=== PATIENT | male | born 1950 | race Caucasian/White ===

== ENCOUNTER 2019-11-09 12:25 | Inpatient (IN) | payer BC, MEDICARE, OTHER ==
[2019-11-09] MEDS ORDERED: Dexamethasone 10 MG/ML VIAL ONE (13:05)
--- NOTE | 2019-11-09 13:37 | RAD ---
RADIOGRAPH CHEST 1 VIEW: DATE: 11/09/2019 TIME: 1:06 PM HISTORY: 69 year old male with dyspnea COMPARISON: 10/10/2018 FINDINGS: New finding of multifocal mild, subtle, faint, patchy infiltrates in bilateral mid, upper, and lower lung zones, right greater than left, with peripheral predominance. No cardiomegaly, pulmonary edema, pneumothorax, or effacement of lateral costophrenic angles. IMPRESSION: Multifocal mild bilateral groundglass infiltrates suggestive of viral pneumonia. Recommend correlatio n with laboratory COVID-19 testing.
[2019-11-09 13:53] LABS: #Lymphocytes 0.9 thou/uL (1.20-3.40); #Monocytes 0.6 thou/uL (0.11-0.59); #Neutrophils 3.5 thou/uL (1.40-6.50); %Eosinophils 0.1 % (0.0-10.0); %Lymphocytes 17.6 % (21.0-51.0); %Monocytes 12.2 % (0.0-10.0); %Neutrophils 70.1 % (42.0-75.0); Hemoglobin 16.5 g/dL (14.0-18.0); Mean Corpuscular HGB CONC 33.5 g/dL (32.0-36.0); Mean Corpuscular Hemoglobin 30.8 pg (27.0-31.0); Mean Corpuscular Volume 92.1 fL (78.0-98.0); Mean Platelet Volume 8.3 fL (7.4-10.4); Platelet Count 148 thou/uL (130-400); RBC Distribution Width 12.1 % (11.5-14.5); Red Blood Cell (RBC) Count 5.34 mill/uL (4.70-6.10)
[2019-11-09 14:15] LABS: ALT (SGPT) 49 U/L (8-55); AST (SGOT) 34 U/L (5-34); Albumin 3.6 g/dL (3.4-4.8); Alkaline Phosphatase 96 U/L (40-110); Anion Gap 14 mmol/L (10-20); BUN (Urea Nitrogen) 19 mg/dL (8.4-25.7); Bilirubin, Total 0.5 mg/dL (0.2-1.2); CK (CPK) 162 U/L (30-200); Calc. Creatinine Clearance 0 mL/min (70-130); Calcium 8.3 mg/dL (7.8-10.44); Carbon Dioxide 23 mmol/L (23-31); Chloride 102 mmol/L (98-107); Estimated GFR-MDRD 51; Globulin 2.9 g/dL (2.4-3.5); Glucose 87 mg/dL (80-115); Lipase 29 U/L (8-78); Potassium 4.1 mmol/L (3.5-5.1); Protein, Total 6.5 g/dL (5.8-8.1); Sodium 135 mmol/L (136-145)
[2019-11-09] MEDS ORDERED: Enoxaparin Sodium 30 MG/0.3 ML SYRINGE ONE (14:32)
[2019-11-09] MEDS ORDERED: Azithromycin 500 MG VIAL ONE (14:32)
[2019-11-09] MEDS ORDERED: Enoxaparin Sodium 60 MG/0.6 ML SYRINGE ONE (14:32)
[2019-11-09] MEDS ORDERED: Aspirin Chewable 81 MG TAB ONE (14:32)
[2019-11-09] MEDS ORDERED: cefTRIAXone\\ROCEPHIN 1 GM VIAL ONE (14:32)
[2019-11-09] MEDS ORDERED: Ondansetron ODT 4 MG TAB SL PRN (16:42)
[2019-11-09] MEDS ORDERED: Ondansetron PF 4 MG/2 ML Vial IVP PRN (16:42)
[2019-11-09] MEDS ORDERED: Sodium Chloride 0.9% 1,000 ML IV SCH (16:42)
[2019-11-09 17:31] VITALS: BMI 27.1
[2019-11-09 17:53] LABS: Troponin I 0.011 ng/mL (< 0.028)
[2019-11-09] MEDS ORDERED: Acetaminophen 650 MG Suppository PR PRN (17:54)
--- NOTE | 2019-11-09 18:59 | HP ---
PRIMARY CARE PROVIDER: Dr. Smith. CHIEF COMPLAINT: Cough. HISTORY OF PRESENT ILLNESS: Cheyenne is a pleasant 69-year-old gentleman, who was seen at [facility] on November 09, 2019. He reports that around November 01, he started having progressively worsening shortness of breath. He also reports cough that is occasionally productive of sputum. He reports on and off fevers. He reports body aches. He reports generalized weakness. He had COVID-19 test done on November 04, 2019. He found out that it was positive on November 07, 2019. He continued to have progressively worsening shortness of breath as well as cough. He therefore presented to the emergency room. In the emergency room, he was diagnosed with pneumonia either bacterial or secondary to COVID-19 infection. He has been referred to Hospitalist Service for admission. REVIEW OF SYSTEMS: All systems were reviewed and found to be negative except for the pertinent positives mentioned above. PAST MEDICAL HISTORY: Coronary artery disease, gastroesophageal reflux disease, dyslipidemia, hypertension, and asthma. PAST SURGICAL HISTORY: PCI with stent, left shoulder surgery, right knee surgery, and neck surgery. SOCIAL HISTORY: The patient denies tobacco use, alcohol use, or recreational drug use. FAMILY HISTORY: Hypertension in his mother. ALLERGIES: BACTRIM, MEPERIDINE, AND NALBUPHINE. CURRENT MEDICATIONS: Breo Ellipta inhalation, irbesartan 300 mg daily, nifedipine 60 mg daily, Myrbetri 50 mg daily, ropinirole 0.25 mg daily, Pantoprazole 40 mg daily, and aspirin 81 mg daily. PHYSICAL EXAMINATION: GENERAL: On examination, Mr. Quinn is awake and alert, not in acute distress. VITAL SIGNS: Blood pressure is 152/79, pulse 81, respiratory rate 22, and oxygen saturation 96% on room air. He is afebrile. EYES: No scleral icterus, no conjunctival pallor. ENT: Moist mucosal membranes. No oropharyngeal erythema or exudates. NECK: Supple, nontender, trachea is midline. RESPIRATORY: Accessory muscles of breathing are not active. Chest wall movements are symmetric bilaterally. Lungs are clear to auscultation without wheeze, rhonchi, or crepitations. CARDIOVASCULAR: S1 and S2 are heard, regular. Peripheral pulses palpable. ABDOMEN: Soft, nontender, bowel sounds are heard. NEUROLOGIC: Cranial nerves 2 through 12 are intact. MUSCULOSKELETAL: Power is 5/5 in all 4 extremities. SKIN: No rashes or subcutaneous nodules. LYMPHATIC: No cervical lymphadenopathy. PSYCHIATRIC: Normal mood, normal affect, the patient is oriented to person, place, and time. LABORATORY DATA: Mr. Quinn's labs and investigations were reviewed. I reviewed his electrocardiogram, which shows normal sinus rhythm, no evidence of ST elevation myocardial infarction. I also reviewed his chest x-ray, which shows multifocal bilateral ground-glass infiltrates, most likely secondary to viral pneumonia. He had positive COVID-19 PCR test on November 04, 2019. He has normal white count, normal hemoglobin, normal platelet count, decreased absolute lymphocyte count of 900, D-dimer normal at 0.36, sodium decreased at 135, normal potassium, creatinine elevated at 1.38, it was 1.58 on October 03, 2019, normal LFTs and troponin-I that is less than 0.010. BNP is less than 10. Lipase is normal. ASSESSMENT AND PLAN: Mr. Quinn is a pleasant 69-year-old gentleman, who was seen at [facility] on November 09, 2019. His problem list includes: 1. Pneumonia: Mr. Quinn is presenting with pneumonia, most likely secondary to COVID-19 infection. In the emergency room, he has received dexamethasone, which I will continue. I will check his ferritin and C-reactive protein. He has also received empiric antibiotics to cover bacterial pneumonia in the form of ceftriaxone and azithromycin, which I will continue for now. We will consult ID service for opinion and help with management. 2. Hyponatremia: Mild, likely asymptomatic, we will recheck sodium level. 3. Coronary artery disease: Stable, the patient denies any chest pain at this time. 4. Hypertension: Resume home medications, monitor vital signs and titrate antihypertensives as needed. 5. Chronic kidney disease stage 3: Stable. 6. Asthma: Appears to be stable. 7. Gastroesophageal reflux disease, stable. Many thanks for allowing me to participate in your patient's care. Please feel free to contact me with any questions or concerns. LEVEL OF RISK: High. LEVEL OF COMPLEXITY: High. Job ID: [id number]
[2019-11-09] MEDS ORDERED: Enoxaparin Sodium 40 MG/0.4 ML SYRINGE SC SCH (21:00)
[2019-11-09] MEDS ORDERED: Dexamethasone 10 MG/ML VIAL SLOW IVP SCH (21:00)
[2019-11-09] MEDS: Acetaminophen 325 MG TAB PO PRN (22:11)
[2019-11-09 22:21] LABS: Troponin I 0.019 ng/mL (< 0.028)
[2019-11-10] MEDS ORDERED: Melatonin 3 MG TAB PO PRN (00:39)
[2019-11-10] MEDS ORDERED: rOPINIRole HCl 0.25 MG TAB PO SCH (01:00)
[2019-11-10] MEDS: Acetaminophen 325 MG TAB PO PRN ×4 (02:19→20:29)
[2019-11-10 05:23] LABS: Band 1 % (5-11); Hemoglobin 15.5 g/dL (14.0-18.0); Lymphocytes 39 % (21-51); MDiff Complete? YES; Mean Corpuscular HGB CONC 33.6 g/dL (32.0-36.0); Mean Corpuscular Hemoglobin 30.8 pg (27.0-31.0); Mean Corpuscular Volume 91.6 fL (78.0-98.0); Mean Platelet Volume 7.9 fL (7.4-10.4); Monocytes 10 % (0-10); Neutrophil 50 % (42-75); Platelet Count 146 thou/uL (130-400); Platelet Morphology Comment Appears Adequate; RBC Distribution Width 11.9 % (11.5-14.5); RBC Morphology Normal; Red Blood Cell (RBC) Count 5.05 mill/uL (4.70-6.10); White Blood Cell (WBC) Count 2.5 thou/uL (4.8-10.8)
[2019-11-10 05:25] LABS: Anion Gap 12 mmol/L (10-20); BUN (Urea Nitrogen) 19 mg/dL (8.4-25.7); Calc. Creatinine Clearance 70 mL/min (70-130); Calcium 8.7 mg/dL (7.8-10.44); Carbon Dioxide 24 mmol/L (23-31); Chloride 103 mmol/L (98-107); Estimated GFR-MDRD 54; Glucose 129 mg/dL (80-115); Sodium 135 mmol/L (136-145)
[2019-11-10] MEDS: Azelastine 137 MCG/Spray 30 ML NS SCH (09:15)
[2019-11-10] MEDS: Enoxaparin Sodium 40 MG/0.4 ML SYRINGE SC SCH ×2 (09:16→20:11)
[2019-11-10] MEDS: Dexamethasone 4 MG TAB PO SCH (09:16)
[2019-11-10] MEDS: NIFEdipine XL 60 MG TAB PO SCH (09:16)
[2019-11-10] MEDS: Losartan 25 MG TAB PO SCH (09:17)
[2019-11-10] MEDS: Aspirin 81 mg Enteric Coated Tablet PO SCH (09:17)
[2019-11-10] MEDS ORDERED: cefTRIAXone\\ROCEPHIN 1 GM in Sodium Chloride 0.9% 100 ML IVPB SCH (14:00)
[2019-11-10] MEDS ORDERED: Azithromycin 500 MG in Sodium Chloride 0.9% 250 ML 250 ML IVPB SCH (15:00)
--- NOTE | 2019-11-10 17:23 | PDOC.HOSPP ---
- Subjective Encounter Date: 11/10/19 Encounter Time: 07:40 Subjective: Pt seen for followup re: pneumonia. Feels better. Cough+, clear sputum. Fevers +. - Objective Vital Signs & Weight: Vital Signs (12 hours) Temp Pulse Resp BP Pulse Ox 11/10/19 11:30 97.7 F 71 20 129/69 95 11/10/19 09:16 97.9 F 55 L 16 143/70 H 97 Weight Weight 200 lb I&O: 11/09/19 11/10/19 11/11/19 06:59 06:59 06:59 Intake Total 840 Output Total 2049 Balance -1210 Result Diagrams: 11/10/19 04:56 11/10/19 04:56 Additional Labs: Labs and MARs reviewed by me EKG Reviewed by me: Yes (Tele: NSR) Hospitalist ROS - Review of Systems Respiratory: reports: cough, SOB with excertion, sputum Cardiovascular: denies: chest pain, palpitations, orthopnea, paroxysmal noc. dyspnea, edema, light headedness Gastrointestinal: denies: nausea, vomiting, abdominal pain, diarrhea, constipation, melena, hematochezia - Medication Medications: Active Medications Generic Name Dose Route Start Last Admin Trade Name Freq PRN Reason Stop Dose Admin Acetaminophen 650 mg 11/09/19 17:54 11/10/19 12:51 Tylenol PO 650 mg Q4H PRN Administration Headache/Fever/Mild Pain (1-3) Aspirin 81 mg 11/10/19 09:00 11/10/19 09:17 Ecotrin PO 81 mg QAM NGUYEN Administration Azelastine HCl 0 ml 11/10/19 09:00 11/10/19 09:15 Azelastine NS 1 spr DAILY NGUYEN Administration Dexamethasone 6 mg 11/10/19 08:00 11/10/19 09:16 Decadron PO 6 mg QAM-WM NGUYEN Administration Enoxaparin Sodium 40 mg 11/10/19 09:00 11/10/19 09:16 Lovenox SC 40 mg 0900,2100 NGUYEN Administration Losartan Potassium 100 mg 11/10/19 09:00 11/10/19 09:17 Cozaar PO Not Given DAILY NGUYEN Mirabegron 50 mg 11/10/19 09:00 11/10/19 09:16 Myrbetriq Er PO 50 mg DAILY NGUYEN Administration Nifedipine 60 mg 11/10/19 09:00 11/10/19 09:16 Procardia Xl PO Not Given DAILY NGUYEN Pantoprazole Sodium 40 mg 11/10/19 09:00 11/10/19 09:16 Protonix PO 40 mg DAILY NGUYEN Administration - Exam General Appearance: awake alert Eye: anicteric sclera ENT: moist mucosa Neck: supple, no JVD Heart: RRR, no rubs, normal peripheral pulses Respiratory: normal chest expansion Respiratory - other findings: Bibasal crackles Gastrointestinal: soft, non-tender Extremities: no cyanosis Skin: no rashes Musculoskeletal: no muscle wasting Psychiatric: normal affect, normal behavior Hosp A/P (1) Pneumonia Code(s): J18.9 - PNEUMONIA, UNSPECIFIED ORGANISM Status: Acute (2) GERD (gastroesophageal reflux disease) Code(s): K21.9 - GASTRO-ESOPHAGEAL REFLUX DISEASE WITHOUT ESOPHAGITIS Status: Chronic (3) Dyslipidemia Code(s): E78.5 - HYPERLIPIDEMIA, UNSPECIFIED Status: Chronic (4) HTN (hypertension) Code(s): I10 - ESSENTIAL (PRIMARY) HYPERTENSION Status: Chronic (5) CAD (coronary artery disease) Code(s): I25.10 - ATHSCL HEART DISEASE OF [place] CORONARY ARTERY W/O ANG PCTRS Status: Chronic (6) Chronic kidney disease, stage 3 Code(s): N18.3 - CHRONIC KIDNEY DISEASE, STAGE 3 (MODERATE) Status: Chronic - Plan continue antibiotics, out of bed/ambulate Continue IV ceftriaxone and azithromycin. Continue dexamethasone. Pt is clinically improving. Vit C/D/zinc HTN controlled CKD stable CAD stable
[2019-11-10] MEDS ORDERED: Cholecalciferol 1,000 UNITS (25 MCG) TAB PO SCH (17:30)
[2019-11-10] MEDS ORDERED: Ascorbic Acid 500 mg Chewable Tablet PO SCH (17:30)
[2019-11-10] MEDS ORDERED: Zinc Sulfate 220 MG CAP PO SCH (17:30)
[2019-11-10] MEDS: Mometasone 100 MCG/Formoterol 5 MCG 120 PUFF INHALER INH SCH (17:37)
--- NOTE | 2019-11-10 20:09 | CON ---
DATE OF CONSULTATION: 11/10/2019 REASON FOR CONSULTATION: COVID pneumonia. HISTORY OF PRESENT ILLNESS: A 69-year-old history of coronary artery disease, GERD, hypertension, and asthma, who became ill on November 01, tested positive few days later and because of worsening cough and dyspnea, was admitted. Currently feeling better, still with some cough intermittently. No headaches. No dyspnea. Not requiring oxygen supplementation. No chest pain or abdominal pain. No diarrhea. No genitourinary symptoms. No joint symptoms. PAST MEDICAL HISTORY: Coronary artery disease, GERD, hyperlipidemia, hypertension, and asthma. He has had cardiac stents, shoulder and knee surgery, and neck surgery. SOCIAL HISTORY: Never smoker. He is , lives with family in [place]. FAMILY HISTORY: Both and daughter have COVID. seems to be pretty sick, but has refused to go to the hospital because she needs to care for the 15-year-old daughter. ALLERGIES: BACTRIM AND MEPERIDINE. CURRENT MEDICATIONS: 1. DuoNeb. 2. Ecotrin. 3. Azelastine. 4. Azithromycin. 5. Ceftriaxone. 6. Decadron. 7. Lovenox. 8. Melatonin. 9. Myrbetriq. 10. Inhalers. 11. Ropinirole. PHYSICAL EXAMINATION: VITAL SIGNS: Normal temperature. Breathing anywhere from started at 24 breaths per minute, now is down to 20. He is saturating started at 95, now he is still 95, he is on room air at the moment. GENERAL: There is no distress. Able to speak in full sentences. SKIN: Normal. There is no lymphadenopathy. HEENT: Unremarkable. LUNGS: With a few inspiratory crackles mostly at the bases. No wheezing. HEART: S1 and S2. Regular rate. No S3 or S4. ABDOMEN: Soft, not distended or tender. No ascites. No bladder distention. EXTREMITIES: No joint inflammatory activity. Moves extremities equally. No edema. NEURO: Nonfocal including cognitive function. LABORATORY DATA: The electrolytes started sodium 135, creatinine 1.38 and creatinine now is down to 1.32. Liver profile normal. CRP 5.61, albumin 3.6. D-dimer 0.36. White cell count is 5.0 and now 2.5, hemoglobin 15, platelets 146, and lymphocyte count 0.9. CRP was 5.61. Ferritin was 393. Chest x-ray with bilateral diffuse infiltrates, the infiltrates are not very prominent. ASSESSMENT AND PLAN: Coronary artery disease, hyperlipidemia, asthma, and COVID pneumonia [id number]. The patient continues on Decadron. Decadron in mild cases seems not to provide the same amount of benefit, although he does have asthma and may help with that. So, I am going to continue Decadron. I do not think he needs antiviral therapy at the moment. Continue monitoring inflammatory markers, D-dimer, maybe can go homes in the next few days. Job ID: [id number]
[2019-11-10] MEDS: rOPINIRole HCl 0.25 MG TAB PO SCH (20:11)
[2019-11-10] MEDS: Melatonin 3 MG TAB PO PRN (20:29)
[2019-11-11] MEDS: rOPINIRole HCl 0.25 MG TAB PO SCH ×3 (01:30→21:13)
[2019-11-11] MEDS: Acetaminophen 325 MG TAB PO PRN ×2 (04:06→08:14)
[2019-11-11 05:20] LABS: #Monocytes 0.6 thou/uL (0.11-0.59); #Neutrophils 4.4 thou/uL (1.40-6.50); %Basophils 0.3 % (0.0-1.0); %Eosinophils 0.2 % (0.0-10.0); %Lymphocytes 16.1 % (21.0-51.0); %Monocytes 10.6 % (0.0-10.0); %Neutrophils 72.8 % (42.0-75.0); Hemoglobin 15.2 g/dL (14.0-18.0); Mean Corpuscular HGB CONC 32.1 g/dL (32.0-36.0); Mean Corpuscular Hemoglobin 29.7 pg (27.0-31.0); Mean Corpuscular Volume 92.6 fL (78.0-98.0); Mean Platelet Volume 8.4 fL (7.4-10.4); Platelet Count 189 thou/uL (130-400)
[2019-11-11 05:22] LABS: Anion Gap 15 mmol/L (10-20); BUN (Urea Nitrogen) 21 mg/dL (8.4-25.7); Calc. Creatinine Clearance 79 mL/min (70-130); Calcium 8.8 mg/dL (7.8-10.44); Carbon Dioxide 23 mmol/L (23-31); Chloride 103 mmol/L (98-107); Estimated GFR-MDRD 62; Glucose 111 mg/dL (80-115); Potassium 4.1 mmol/L (3.5-5.1); Sodium 137 mmol/L (136-145)
[2019-11-11] MEDS: Mometasone 100 MCG/Formoterol 5 MCG 120 PUFF INHALER INH SCH ×2 (06:49→18:09)
[2019-11-11] MEDS: Cholecalciferol 1,000 UNITS (25 MCG) TAB PO SCH (08:12)
[2019-11-11] MEDS: Aspirin 81 mg Enteric Coated Tablet PO SCH (08:12)
[2019-11-11] MEDS: Losartan 25 MG TAB PO SCH (08:12)
[2019-11-11] MEDS: Ascorbic Acid 500 mg Chewable Tablet PO SCH (08:13)
[2019-11-11] MEDS: Dexamethasone 4 MG TAB PO SCH (08:13)
[2019-11-11] MEDS: Azelastine 137 MCG/Spray 30 ML NS SCH (08:14)
[2019-11-11] MEDS: Zinc Sulfate 220 MG CAP PO SCH (08:14)
[2019-11-11] MEDS: Enoxaparin Sodium 40 MG/0.4 ML SYRINGE SC SCH ×2 (08:14→21:13)
[2019-11-11] MEDS: NIFEdipine XL 60 MG TAB PO SCH (08:14)
[2019-11-11] MEDS ORDERED: Ondansetron PF 4 MG/2 ML Vial IVP PRN (09:53)
[2019-11-11] MEDS ORDERED: Ondansetron PF 4 MG/2 ML Vial IVP SCH (10:00)
--- NOTE | 2019-11-11 18:18 | PDOC.HOSPP ---
- Subjective Encounter Date: 11/11/19 Encounter Time: 08:00 Subjective: Pt seen for followup for pneumonia. Cough+, sputum+. Feels slightly better. - Objective Vital Signs & Weight: Vital Signs (12 hours) Temp Pulse Resp BP Pulse Ox 11/11/19 16:10 97.6 F 68 20 130/71 93 L 11/11/19 12:15 98.0 F 74 18 128/63 94 L 11/11/19 08:10 97.8 F 84 18 137/65 94 L 11/11/19 08:05 94 L Weight Admit Weight 200 lb Weight 200 lb I&O: 11/10/19 11/11/19 11/12/19 06:59 06:59 06:59 Intake Total 840 2160 1210 Output Total 2050 225 Balance -1210 1935 1210 Result Diagrams: 11/11/19 04:42 11/11/19 04:42 Additional Labs: Labs and MARs reviewed by me EKG Reviewed by me: Yes (Tele; NSR) Hospitalist ROS - Review of Systems Respiratory: reports: cough, sputum Cardiovascular: denies: chest pain, palpitations, orthopnea, paroxysmal noc. dyspnea, edema, light headedness Genitourinary: denies: dysuria, frequency, incontinence, hematuria, retention - Medication Medications: Active Medications Generic Name Dose Route Start Last Admin Trade Name Freq PRN Reason Stop Dose Admin Acetaminophen 650 mg 11/09/19 17:54 11/11/19 08:14 Tylenol PO 650 mg Q4H PRN Administration Headache/Fever/Mild Pain (1-3) Ascorbic Acid 1,000 mg 11/11/19 09:00 11/11/19 08:13 Vitamin C PO 1,000 mg DAILY NGUYEN Administration Aspirin 81 mg 11/10/19 09:00 11/11/19 08:12 Ecotrin PO 81 mg QAM NGUYEN Administration Azelastine HCl 0 ml 11/10/19 09:00 11/11/19 08:14 Azelastine NS 1 spr DAILY NGUYEN Administration Cholecalciferol 1,000 units 11/11/19 09:00 11/11/19 08:12 Vitamin D3 PO 1,000 units DAILY NGUYEN Administration Dexamethasone 6 mg 11/10/19 08:00 11/11/19 08:13 Decadron PO 6 mg QAM-WM NGUYEN Administration Enoxaparin Sodium 40 mg 11/10/19 09:00 11/11/19 08:14 Lovenox SC 40 mg 0900,2100 NGUYEN Administration Losartan Potassium 100 mg 11/10/19 09:00 11/11/19 08:12 Cozaar PO 100 mg DAILY NGUYEN Administration Melatonin 3 mg 11/10/19 07:50 11/10/19 20:29 Melatonin PO 3 mg HS PRN Administration Insomnia Mirabegron 50 mg 11/10/19 09:00 11/11/19 08:12 Myrbetriq Er PO 50 mg DAILY NGUYEN Administration Mometasone Furoate/Formoterol Fumar 2 puff 11/10/19 18:30 11/11/19 18:09 Dulera 100 Mcg/5 Mcg Inhaler INH 2 puff BID-RT NGUYEN Administration Nifedipine 60 mg 11/10/19 09:00 11/11/19 08:14 Procardia Xl PO 60 mg DAILY NGUYEN Administration Pantoprazole Sodium 40 mg 11/10/19 09:00 11/11/19 08:12 Protonix PO 40 mg DAILY NGUYEN Administration Ropinirole HCl 0.25 mg 11/10/19 21:00 11/10/19 20:11 Requip PO 0.25 mg HS NGUYEN Administration Zinc Sulfate 220 mg 11/11/19 09:00 11/11/19 08:14 Zinc Sulfate PO 220 mg DAILY NGUYEN Administration - Exam General Appearance: awake alert Eye: scleral icterus ENT: moist mucosa Neck: supple Heart: RRR Respiratory: CTAB Gastrointestinal: soft, non-tender Extremities: no cyanosis Psychiatric: normal affect, normal behavior Hosp A/P (1) Pneumonia Code(s): J18.9 - PNEUMONIA, UNSPECIFIED ORGANISM Status: Acute (2) Dyslipidemia Code(s): E78.5 - HYPERLIPIDEMIA, UNSPECIFIED Status: Chronic (3) GERD (gastroesophageal reflux disease) Code(s): K21.9 - GASTRO-ESOPHAGEAL REFLUX DISEASE WITHOUT ESOPHAGITIS Status: Chronic (4) HTN (hypertension) Code(s): I10 - ESSENTIAL (PRIMARY) HYPERTENSION Status: Chronic (5) CAD (coronary artery disease) Code(s): I25.10 - ATHSCL HEART DISEASE OF [place] CORONARY ARTERY W/O ANG PCTRS Status: Chronic (6) Chronic kidney disease, stage 3 Code(s): N18.3 - CHRONIC KIDNEY DISEASE, STAGE 3 (MODERATE) Status: Chronic - Plan continue antibiotics, out of bed/ambulate Continue dexamethasone. Pt is clinically improving. ceftriaxone and azithromycin discontinued. Vit C/D/zinc HTN controlled CKD and CAD stable Hyponatremia resolved.
[2019-11-12] MEDS ORDERED: guaiFENesin ER 600 MG TAB PO SCH (05:00)
[2019-11-12] MEDS: Acetaminophen 325 MG TAB PO PRN ×2 (05:11→14:13)
[2019-11-12] MEDS: Mometasone 100 MCG/Formoterol 5 MCG 120 PUFF INHALER INH SCH ×2 (05:23→18:16)
[2019-11-12 05:34] LABS: #Monocytes 0.7 thou/uL (0.11-0.59); #Neutrophils 5.9 thou/uL (1.40-6.50); %Basophils 0.4 % (0.0-1.0); %Eosinophils 0.1 % (0.0-10.0); %Lymphocytes 12.9 % (21.0-51.0); %Monocytes 8.9 % (0.0-10.0); %Neutrophils 77.8 % (42.0-75.0); Hemoglobin 15.7 g/dL (14.0-18.0); Mean Corpuscular HGB CONC 33.8 g/dL (32.0-36.0); Mean Corpuscular Hemoglobin 31.1 pg (27.0-31.0); Mean Corpuscular Volume 92.2 fL (78.0-98.0); Platelet Count 186 thou/uL (130-400); Red Blood Cell (RBC) Count 5.06 mill/uL (4.70-6.10); White Blood Cell (WBC) Count 7.6 thou/uL (4.8-10.8)
[2019-11-12 05:54] LABS: Anion Gap 13 mmol/L (10-20); BUN (Urea Nitrogen) 21 mg/dL (8.4-25.7); Calc. Creatinine Clearance 62 mL/min (70-130); Calcium 8.6 mg/dL (7.8-10.44); Carbon Dioxide 30 mmol/L (23-31); Chloride 98 mmol/L (98-107); Estimated GFR-MDRD 47; Glucose 83 mg/dL (80-115); Potassium 4.3 mmol/L (3.5-5.1); Sodium 137 mmol/L (136-145)
[2019-11-12] MEDS: Enoxaparin Sodium 40 MG/0.4 ML SYRINGE SC SCH ×2 (07:55→20:08)
[2019-11-12] MEDS: Cholecalciferol 1,000 UNITS (25 MCG) TAB PO SCH (07:56)
[2019-11-12] MEDS: Aspirin 81 mg Enteric Coated Tablet PO SCH (07:56)
[2019-11-12] MEDS: Ascorbic Acid 500 mg Chewable Tablet PO SCH (07:56)
[2019-11-12] MEDS: Zinc Sulfate 220 MG CAP PO SCH (07:57)
[2019-11-12] MEDS: NIFEdipine XL 60 MG TAB PO SCH (07:57)
[2019-11-12] MEDS: guaiFENesin ER 600 MG TAB PO SCH ×2 (07:58→20:07)
[2019-11-12] MEDS: Losartan 25 MG TAB PO SCH (07:59)
[2019-11-12] MEDS: Dexamethasone 4 MG TAB PO SCH (07:59)
[2019-11-12] MEDS: Azelastine 137 MCG/Spray 30 ML NS SCH (08:18)
--- NOTE | 2019-11-12 16:04 | PDOC.HOSPP ---
- Subjective Encounter Date: 11/12/19 Encounter Time: 09:00 Subjective: Pt seen for followup for COVID pneumonia. Needing supplemental oxygen. - Objective Vital Signs & Weight: Vital Signs (12 hours) Temp Pulse Resp BP Pulse Ox 11/12/19 10:50 98.8 F 89 24 H 118/61 96 11/12/19 08:00 98.7 F 80 22 H 119/54 L 95 11/12/19 07:57 90 Weight Admit Weight 200 lb Weight 200 lb I&O: 11/11/19 11/12/19 11/13/19 06:59 06:59 06:59 Intake Total 2160 1830 Output Total 225 Balance 1935 1830 Result Diagrams: 11/12/19 05:12 11/12/19 05:11 Additional Labs: Labs and MARs reviewed by me EKG Reviewed by me: Yes (Tele: NSR) Hospitalist ROS - Review of Systems Constitutional: denies: fever, chills, sweats, weakness, malaise Respiratory: reports: cough, SOB with excertion, sputum. denies: dry, shortness of breath, hemoptysis, pleuritic pain, wheezing - Medication Medications: Active Medications Generic Name Dose Route Start Last Admin Trade Name Freq PRN Reason Stop Dose Admin Acetaminophen 650 mg 11/09/19 17:54 11/12/19 14:13 Tylenol PO 650 mg Q4H PRN Administration Headache/Fever/Mild Pain (1-3) Ascorbic Acid 1,000 mg 11/11/19 09:00 11/12/19 07:56 Vitamin C PO 1,000 mg DAILY NGUYEN Administration Aspirin 81 mg 11/10/19 09:00 11/12/19 07:56 Ecotrin PO 81 mg QAM NGUYEN Administration Azelastine HCl 0 ml 11/10/19 09:00 11/12/19 08:18 Azelastine NS Not Given DAILY NGUYEN Cholecalciferol 1,000 units 11/11/19 09:00 11/12/19 07:56 Vitamin D3 PO 1,000 units DAILY NGUYEN Administration Dexamethasone 6 mg 11/10/19 08:00 11/12/19 07:59 Decadron PO 6 mg QAM-WM NGUYEN Administration Enoxaparin Sodium 40 mg 11/10/19 09:00 11/12/19 07:55 Lovenox SC 40 mg 0900,2100 NGUYEN Administration Guaifenesin 600 mg 11/12/19 09:00 11/12/19 07:58 Mucinex PO Not Given Q12HR NGUYEN Losartan Potassium 100 mg 11/10/19 09:00 11/12/19 07:59 Cozaar PO 100 mg DAILY NGUYEN Administration Melatonin 3 mg 11/10/19 07:50 11/10/19 20:29 Melatonin PO 3 mg HS PRN Administration Insomnia Mirabegron 50 mg 11/10/19 09:00 11/12/19 07:55 Myrbetriq Er PO 50 mg DAILY NGUYEN Administration Mometasone Furoate/Formoterol Fumar 2 puff 11/10/19 18:30 11/12/19 05:23 Dulera 100 Mcg/5 Mcg Inhaler INH 2 puff BID-RT NGUYEN Administration Nifedipine 60 mg 11/10/19 09:00 11/12/19 07:57 Procardia Xl PO 60 mg DAILY NGUYEN Administration Ondansetron HCl 4 mg 11/11/19 09:53 11/11/19 21:13 Zofran IVP 4 mg Q6H PRN Administration Nausea/Vomiting Pantoprazole Sodium 40 mg 11/10/19 09:00 11/12/19 07:57 Protonix PO 40 mg DAILY NGUYEN Administration Ropinirole HCl 0.25 mg 11/10/19 21:00 11/11/19 21:13 Requip PO 0.25 mg HS NGUYEN Administration Sodium Chloride 10 ml 11/11/19 21:00 11/12/19 07:55 Flush - Normal Saline IVF 10 ml Q12HR NGUYEN Administration Zinc Sulfate 220 mg 11/11/19 09:00 11/12/19 07:57 Zinc Sulfate PO 220 mg DAILY NGUYEN Administration - Exam General Appearance: awake alert Eye: anicteric sclera ENT: moist mucosa Neck: supple Heart: RRR Respiratory: CTAB Gastrointestinal: soft, non-tender Extremities: no cyanosis Psychiatric: normal affect, normal behavior Hosp A/P (1) Pneumonia Code(s): J18.9 - PNEUMONIA, UNSPECIFIED ORGANISM Status: Acute (2) Dyslipidemia Code(s): E78.5 - HYPERLIPIDEMIA, UNSPECIFIED Status: Chronic (3) GERD (gastroesophageal reflux disease) Code(s): K21.9 - GASTRO-ESOPHAGEAL REFLUX DISEASE WITHOUT ESOPHAGITIS Status: Chronic (4) HTN (hypertension) Code(s): I10 - ESSENTIAL (PRIMARY) HYPERTENSION Status: Chronic (5) CAD (coronary artery disease) Code(s): I25.10 - ATHSCL HEART DISEASE OF [place] CORONARY ARTERY W/O ANG PCTRS Status: Chronic (6) Chronic kidney disease, stage 3 Code(s): N18.3 - CHRONIC KIDNEY DISEASE, STAGE 3 (MODERATE) Status: Chronic - Plan Continue dexamethasone. Pt is clinically improving, but needing supplemental oxygen Vit C/D/zinc HTN controlled CKD and CAD stable
[2019-11-12] MEDS: rOPINIRole HCl 0.25 MG TAB PO SCH (20:07)
[2019-11-13] MEDS: Guaifenesin DM 100-10/5 ML UDCUP PO PRN (00:03)
[2019-11-13] MEDS: Acetaminophen 325 MG TAB PO PRN (03:04)
[2019-11-13] MEDS: Benzonatate 100 MG CAP PO PRN ×3 (03:48→21:02)
[2019-11-13] MEDS: Mometasone 100 MCG/Formoterol 5 MCG 120 PUFF INHALER INH SCH ×2 (06:46→18:35)
[2019-11-13] MEDS: Dexamethasone 4 MG TAB PO SCH (09:19)
[2019-11-13] MEDS: Enoxaparin Sodium 40 MG/0.4 ML SYRINGE SC SCH ×2 (09:19→21:02)
[2019-11-13] MEDS: guaiFENesin ER 600 MG TAB PO SCH ×2 (09:24→21:01)
[2019-11-13] MEDS: Aspirin 81 mg Enteric Coated Tablet PO SCH (09:24)
[2019-11-13] MEDS: Cholecalciferol 1,000 UNITS (25 MCG) TAB PO SCH (09:25)
[2019-11-13] MEDS: Losartan 25 MG TAB PO SCH (09:25)
[2019-11-13] MEDS: Zinc Sulfate 220 MG CAP PO SCH (09:25)
[2019-11-13] MEDS: Ascorbic Acid 500 mg Chewable Tablet PO SCH (09:26)
[2019-11-13] MEDS: NIFEdipine XL 60 MG TAB PO SCH (09:26)
[2019-11-13] MEDS: Azelastine 137 MCG/Spray 30 ML NS SCH (09:46)
--- NOTE | 2019-11-13 16:46 | PDOC.HOSPP ---
- Subjective Encounter Date: 11/13/19 Encounter Time: 07:40 Subjective: Pt seen for followup re: COVID pneumonia. Cough+, but improving. Fever+. - Objective Vital Signs & Weight: Vital Signs (12 hours) Temp Pulse Resp BP Pulse Ox 11/13/19 12:00 97.7 F 84 24 H 120/66 91 L 11/13/19 09:35 98.4 F 98 24 H 125/61 92 L 11/13/19 09:26 84 11/13/19 05:42 93 L 11/13/19 04:52 84 Weight Admit Weight 200 lb Weight 200 lb I&O: 11/12/19 11/13/19 11/14/19 06:59 06:59 06:59 Intake Total 1830 1560 Balance 1830 1560 Result Diagrams: 11/12/19 05:12 11/12/19 05:11 Additional Labs: Labs and MARs reviewed by me EKG Reviewed by me: Yes (Tele: NSR) Hospitalist ROS - Review of Systems Constitutional: reports: fever. denies: chills, sweats, weakness, malaise Respiratory: reports: cough, sputum. denies: dry, shortness of breath, hemoptysis, SOB with excertion, pleuritic pain, wheezing Gastrointestinal: denies: nausea, vomiting, abdominal pain, diarrhea, constipation, melena, hematochezia - Medication Medications: Active Medications Generic Name Dose Route Start Last Admin Trade Name Freq PRN Reason Stop Dose Admin Acetaminophen 650 mg 11/09/19 17:54 11/13/19 03:04 Tylenol PO 650 mg Q4H PRN Administration Headache/Fever/Mild Pain (1-3) Ascorbic Acid 1,000 mg 11/11/19 09:00 11/13/19 09:26 Vitamin C PO 1,000 mg DAILY NGUYEN Administration Aspirin 81 mg 11/10/19 09:00 11/13/19 09:24 Ecotrin PO 81 mg QAM NGUYEN Administration Azelastine HCl 0 ml 11/10/19 09:00 11/13/19 09:46 Azelastine NS 1 spr DAILY NGUYEN Administration Benzonatate 200 mg 11/13/19 03:39 11/13/19 12:04 Tessalon PO 200 mg Q8HR PRN Administration Cough Cholecalciferol 1,000 units 11/11/19 09:00 11/13/19 09:25 Vitamin D3 PO 1,000 units DAILY NGUYEN Administration Dexamethasone 6 mg 11/10/19 08:00 11/13/19 09:19 Decadron PO 6 mg QAM-WM NGUYEN Administration Enoxaparin Sodium 40 mg 11/10/19 09:00 11/13/19 09:19 Lovenox SC 40 mg 0900,2100 NGUYEN Administration Guaifenesin 600 mg 11/12/19 09:00 11/13/19 09:24 Mucinex PO 600 mg Q12HR NGUYEN Administration Guaifenesin/Dextromethorphan 15 ml 11/12/19 23:58 11/13/19 00:03 Robitussin Dm PO 15 ml Q4H PRN Administration Cough Losartan Potassium 100 mg 11/10/19 09:00 11/13/19 09:25 Cozaar PO 100 mg DAILY NGUYEN Administration Melatonin 3 mg 11/10/19 07:50 11/10/19 20:29 Melatonin PO 3 mg HS PRN Administration Insomnia Mirabegron 50 mg 11/10/19 09:00 11/13/19 09:24 Myrbetriq Er PO 50 mg DAILY NGUYEN Administration Mometasone Furoate/Formoterol Fumar 2 puff 11/10/19 18:30 11/13/19 06:46 Dulera 100 Mcg/5 Mcg Inhaler INH 2 puff BID-RT NGUYEN Administration Nifedipine 60 mg 11/10/19 09:00 11/13/19 09:26 Procardia Xl PO 60 mg DAILY NGUYEN Administration Ondansetron HCl 4 mg 11/11/19 09:53 11/11/19 21:13 Zofran IVP 4 mg Q6H PRN Administration Nausea/Vomiting Pantoprazole Sodium 40 mg 11/10/19 09:00 11/13/19 09:26 Protonix PO 40 mg DAILY NGUYEN Administration Ropinirole HCl 0.25 mg 11/10/19 21:00 11/12/19 20:07 Requip PO 0.25 mg HS NGUYEN Administration Sodium Chloride 10 ml 11/11/19 21:00 11/13/19 09:26 Flush - Normal Saline IVF 10 ml Q12HR NGUYEN Administration Zinc Sulfate 220 mg 11/11/19 09:00 11/13/19 09:25 Zinc Sulfate PO 220 mg DAILY NGUYEN Administration - Exam General Appearance: awake alert Eye: anicteric sclera ENT: moist mucosa Neck: supple Heart: RRR Respiratory: CTAB Gastrointestinal: soft, non-tender Psychiatric: normal affect, normal behavior Hosp A/P (1) Pneumonia due to COVID-19 virus Code(s): U07.1 - COVID-19; J12.89 - OTHER VIRAL PNEUMONIA Status: Acute (2) GERD (gastroesophageal reflux disease) Code(s): K21.9 - GASTRO-ESOPHAGEAL REFLUX DISEASE WITHOUT ESOPHAGITIS Status: Chronic (3) Dyslipidemia Code(s): E78.5 - HYPERLIPIDEMIA, UNSPECIFIED Status: Chronic (4) HTN (hypertension) Code(s): I10 - ESSENTIAL (PRIMARY) HYPERTENSION Status: Chronic (5) CAD (coronary artery disease) Code(s): I25.10 - ATHSCL HEART DISEASE OF [place] CORONARY ARTERY W/O ANG PCTRS Status: Chronic (6) Chronic kidney disease, stage 3 Code(s): N18.3 - CHRONIC KIDNEY DISEASE, STAGE 3 (MODERATE) Status: Chronic - Plan Pt is on dexamethasone. Pt is needing supplemental oxygen continue Vit C/D/zinc HTN controlled CKD and CAD stable
[2019-11-13] MEDS: rOPINIRole HCl 0.25 MG TAB PO SCH (21:01)
[2019-11-14] MEDS: Mometasone 100 MCG/Formoterol 5 MCG 120 PUFF INHALER INH SCH ×2 (05:52→17:54)
[2019-11-14] MEDS: Benzonatate 100 MG CAP PO PRN ×2 (05:53→14:14)
[2019-11-14] MEDS: Losartan 25 MG TAB PO SCH (09:26)
[2019-11-14] MEDS: Ascorbic Acid 500 mg Chewable Tablet PO SCH (09:26)
[2019-11-14] MEDS: NIFEdipine XL 60 MG TAB PO SCH (09:27)
[2019-11-14] MEDS: guaiFENesin ER 600 MG TAB PO SCH ×2 (09:27→20:29)
[2019-11-14] MEDS: Cholecalciferol 1,000 UNITS (25 MCG) TAB PO SCH (09:27)
[2019-11-14] MEDS: Dexamethasone 4 MG TAB PO SCH (09:27)
[2019-11-14] MEDS: Aspirin 81 mg Enteric Coated Tablet PO SCH (09:27)
[2019-11-14] MEDS: Azelastine 137 MCG/Spray 30 ML NS SCH (09:28)
[2019-11-14] MEDS: Zinc Sulfate 220 MG CAP PO SCH (09:30)
[2019-11-14] MEDS: Enoxaparin Sodium 40 MG/0.4 ML SYRINGE SC SCH ×2 (09:30→20:29)
[2019-11-14 10:00] LABS: #Monocytes 1.1 thou/uL (0.11-0.59); #Neutrophils 11.5 thou/uL (1.40-6.50); %Basophils 0.1 % (0.0-1.0); %Eosinophils 0.1 % (0.0-10.0); %Lymphocytes 7.1 % (21.0-51.0); %Monocytes 7.7 % (0.0-10.0); Hemoglobin 14.7 g/dL (14.0-18.0); Mean Corpuscular HGB CONC 31.5 g/dL (32.0-36.0); Mean Corpuscular Volume 91.9 fL (78.0-98.0); Mean Platelet Volume 7.8 fL (7.4-10.4); Platelet Count 238 thou/uL (130-400); Red Blood Cell (RBC) Count 5.06 mill/uL (4.70-6.10); White Blood Cell (WBC) Count 13.6 thou/uL (4.8-10.8)
[2019-11-14 10:20] LABS: Anion Gap 12 mmol/L (10-20); BUN (Urea Nitrogen) 28 mg/dL (8.4-25.7); Calc. Creatinine Clearance 65 mL/min (70-130); Calcium 8.7 mg/dL (7.8-10.44); Carbon Dioxide 29 mmol/L (23-31); Chloride 99 mmol/L (98-107); Estimated GFR-MDRD 50; Glucose 108 mg/dL (80-115); Sodium 136 mmol/L (136-145)
--- NOTE | 2019-11-14 17:54 | PDOC.HOSPP ---
- Subjective Encounter Date: 11/14/19 Encounter Time: 10:00 Subjective: Pt seen for followup for pneumonia due to COVID-19. Cough better. - Objective Vital Signs & Weight: Vital Signs (12 hours) Temp Pulse Resp BP Pulse Ox 11/14/19 12:00 98.4 F 77 24 H 114/59 L 94 L 11/14/19 09:27 92 11/14/19 09:00 98.6 F 97 25 H 128/64 91 L 11/14/19 08:00 91 L Weight Admit Weight 200 lb Weight 200 lb I&O: 11/13/19 11/14/19 11/15/19 06:59 06:59 06:59 Intake Total 1560 1200 Balance 1560 1200 Result Diagrams: 11/14/19 09:43 11/14/19 09:43 Additional Labs: labs and MARs reviewed by me EKG Reviewed by me: Yes (Tele: NSR) Hospitalist ROS - Review of Systems Respiratory: reports: cough, dry. denies: shortness of breath, hemoptysis, SOB with excertion, pleuritic pain, sputum, wheezing Gastrointestinal: denies: nausea, vomiting, abdominal pain, diarrhea, constipation, melena - Medication Medications: Active Medications Generic Name Dose Route Start Last Admin Trade Name Freq PRN Reason Stop Dose Admin Acetaminophen 650 mg 11/09/19 17:54 11/13/19 03:04 Tylenol PO 650 mg Q4H PRN Administration Headache/Fever/Mild Pain (1-3) Ascorbic Acid 1,000 mg 11/11/19 09:00 11/14/19 09:26 Vitamin C PO 1,000 mg DAILY NGUYEN Administration Aspirin 81 mg 11/10/19 09:00 11/14/19 09:27 Ecotrin PO 81 mg QAM NGUYEN Administration Azelastine HCl 0 ml 11/10/19 09:00 11/14/19 09:28 Azelastine NS 1 spr DAILY NGUYEN Administration Benzonatate 200 mg 11/13/19 03:39 11/14/19 14:14 Tessalon PO 200 mg Q8HR PRN Administration Cough Cholecalciferol 1,000 units 11/11/19 09:00 11/14/19 09:27 Vitamin D3 PO 1,000 units DAILY NGUYEN Administration Dexamethasone 6 mg 11/10/19 08:00 07/16/20 09:27 Decadron PO 6 mg QAM-WM NGUYEN Administration Enoxaparin Sodium 40 mg 11/10/19 09:00 11/14/19 09:30 Lovenox SC 40 mg 0900,2100 NGUYEN Administration Guaifenesin 600 mg 11/12/19 09:00 11/14/19 09:27 Mucinex PO 600 mg Q12HR NGUYEN Administration Guaifenesin/Dextromethorphan 15 ml 11/12/19 23:58 11/13/19 00:03 Robitussin Dm PO 15 ml Q4H PRN Administration Cough Losartan Potassium 100 mg 11/10/19 09:00 11/14/19 09:26 Cozaar PO 100 mg DAILY NGUYEN Administration Melatonin 3 mg 11/10/19 07:50 11/10/19 20:29 Melatonin PO 3 mg HS PRN Administration Insomnia Mirabegron 50 mg 11/10/19 09:00 11/14/19 09:30 Myrbetriq Er PO 50 mg DAILY NGUYEN Administration Mometasone Furoate/Formoterol Fumar 2 puff 11/10/19 18:30 11/14/19 05:52 Dulera 100 Mcg/5 Mcg Inhaler INH 2 puff BID-RT NGUYEN Administration Nifedipine 60 mg 11/10/19 09:00 11/14/19 09:27 Procardia Xl PO 60 mg DAILY NGUYEN Administration Ondansetron HCl 4 mg 11/11/19 09:53 11/11/19 21:13 Zofran IVP 4 mg Q6H PRN Administration Nausea/Vomiting Pantoprazole Sodium 40 mg 11/10/19 09:00 11/14/19 09:27 Protonix PO 40 mg DAILY NGUYEN Administration Ropinirole HCl 0.25 mg 11/10/19 21:00 11/13/19 21:01 Requip PO 0.25 mg HS NGUYEN Administration Sodium Chloride 10 ml 11/11/19 21:00 11/14/19 09:31 Flush - Normal Saline IVF 10 ml Q12HR NGUYEN Administration Zinc Sulfate 220 mg 11/11/19 09:00 11/14/19 09:30 Zinc Sulfate PO 220 mg DAILY NGUYEN Administration - Exam General Appearance: awake alert Eye: anicteric sclera ENT: normocephalic atraumatic Heart: RRR Respiratory: CTAB Gastrointestinal: non-tender, normal bowel sounds Musculoskeletal: no muscle wasting Psychiatric: normal affect Hosp A/P (1) Pneumonia due to COVID-19 virus Code(s): U07.1 - COVID-19; J12.89 - OTHER VIRAL PNEUMONIA Status: Acute (2) Dyslipidemia Code(s): E78.5 - HYPERLIPIDEMIA, UNSPECIFIED Status: Chronic (3) GERD (gastroesophageal reflux disease) Code(s): K21.9 - GASTRO-ESOPHAGEAL REFLUX DISEASE WITHOUT ESOPHAGITIS Status: Chronic (4) CAD (coronary artery disease) Code(s): I25.10 - ATHSCL HEART DISEASE OF [place] CORONARY ARTERY W/O ANG PCTRS Status: Chronic (5) HTN (hypertension) Code(s): I10 - ESSENTIAL (PRIMARY) HYPERTENSION Status: Chronic (6) Chronic kidney disease, stage 3 Code(s): N18.3 - CHRONIC KIDNEY DISEASE, STAGE 3 (MODERATE) Status: Chronic - Plan out of bed/ambulate Continue dexamethasone. d-dimer improved but ferritin and CRP worse today. Pt is still needing supplemental oxygen continue Vit C/D/zinc HTN controlled CKD and CAD stable Change Tessalon to scheduled. Continue Mucinex.
[2019-11-14] MEDS: Benzonatate 100 MG CAP PO SCH (20:29)
[2019-11-14] MEDS: rOPINIRole HCl 0.25 MG TAB PO SCH (20:29)
[2019-11-14] MEDS: Albuterol 200 PUFF (6.7GM INHALER) INH PRN (21:42)
[2019-11-15 05:22] LABS: #Lymphocytes 0.7 thou/uL (1.20-3.40); #Monocytes 0.8 thou/uL (0.11-0.59); #Neutrophils 6.7 thou/uL (1.40-6.50); %Basophils 0.1 % (0.0-1.0); %Eosinophils 0.1 % (0.0-10.0); %Lymphocytes 8.5 % (21.0-51.0); %Monocytes 9.4 % (0.0-10.0); %Neutrophils 81.9 % (42.0-75.0); Hemoglobin 14.5 g/dL (14.0-18.0); Mean Corpuscular HGB CONC 32.7 g/dL (32.0-36.0); Mean Corpuscular Volume 91.8 fL (78.0-98.0); Mean Platelet Volume 7.8 fL (7.4-10.4); Platelet Count 252 thou/uL (130-400); Red Blood Cell (RBC) Count 4.82 mill/uL (4.70-6.10); White Blood Cell (WBC) Count 8.2 thou/uL (4.8-10.8)
[2019-11-15 05:28] LABS: Anion Gap 13 mmol/L (10-20); BUN (Urea Nitrogen) 30 mg/dL (8.4-25.7); Calc. Creatinine Clearance 67 mL/min (70-130); Calcium 8.6 mg/dL (7.8-10.44); Carbon Dioxide 28 mmol/L (23-31); Chloride 99 mmol/L (98-107); Estimated GFR-MDRD 51; Glucose 119 mg/dL (80-115); Potassium 3.9 mmol/L (3.5-5.1); Sodium 136 mmol/L (136-145)
[2019-11-15] MEDS: Mometasone 100 MCG/Formoterol 5 MCG 120 PUFF INHALER INH SCH ×2 (06:47→20:26)
[2019-11-15] MEDS: Losartan 25 MG TAB PO SCH (08:42)
[2019-11-15] MEDS: guaiFENesin ER 600 MG TAB PO SCH ×2 (08:42→22:25)
[2019-11-15] MEDS: Cholecalciferol 1,000 UNITS (25 MCG) TAB PO SCH (08:42)
[2019-11-15] MEDS: Benzonatate 100 MG CAP PO SCH ×3 (08:42→22:24)
[2019-11-15] MEDS: Aspirin 81 mg Enteric Coated Tablet PO SCH (08:43)
[2019-11-15] MEDS: NIFEdipine XL 60 MG TAB PO SCH (08:43)
[2019-11-15] MEDS: Enoxaparin Sodium 40 MG/0.4 ML SYRINGE SC SCH ×2 (08:43→22:25)
[2019-11-15] MEDS: Azelastine 137 MCG/Spray 30 ML NS SCH (09:30)
[2019-11-15] MEDS: Albuterol 200 PUFF (6.7GM INHALER) INH PRN ×2 (11:00→15:00)
[2019-11-15] MEDS: Dexamethasone 4 MG TAB PO SCH (11:15)
[2019-11-15] MEDS: Ascorbic Acid 500 mg Chewable Tablet PO SCH (11:16)
[2019-11-15] MEDS: Zinc Sulfate 220 MG CAP PO SCH (11:17)
--- NOTE | 2019-11-15 18:59 | PDOC.HOSPP ---
- Subjective Encounter Date: 11/15/19 Encounter Time: 07:40 Subjective: Pt seen for followup re; COVID pneumonia. Cough+, sputum+ - Objective Vital Signs & Weight: Vital Signs (12 hours) Temp Pulse Resp BP Pulse Ox 11/15/19 18:00 97.7 F 74 24 H 127/66 94 L 11/15/19 14:30 97.7 F 72 24 H 116/60 95 11/15/19 09:04 97.8 F 72 20 116/62 94 L 11/15/19 09:00 3 L Weight Admit Weight 200 lb Weight 200 lb I&O: 11/14/19 11/15/19 11/16/19 06:59 06:59 06:59 Intake Total 1200 1030 Output Total 850 Balance 1200 180 Result Diagrams: 11/15/19 04:49 11/15/19 04:49 Additional Labs: Labs and MARs reviewed by me EKG Reviewed by me: Yes (Tele: NSR) Hospitalist ROS - Review of Systems Constitutional: reports: weakness, malaise. denies: fever, chills, sweats Respiratory: reports: cough, sputum Gastrointestinal: denies: nausea, vomiting, abdominal pain, diarrhea, constipation, melena, hematochezia - Medication Medications: Active Medications Generic Name Dose Route Start Last Admin Trade Name Freq PRN Reason Stop Dose Admin Acetaminophen 650 mg 11/09/19 17:54 11/13/19 03:04 Tylenol PO 650 mg Q4H PRN Administration Headache/Fever/Mild Pain (1-3) Albuterol Sulfate 2 puff 11/14/19 21:29 11/15/19 15:00 Proventil Hfa INH 2 puff QIDPRN PRN Administration SOB/WHEEZE Ascorbic Acid 1,000 mg 11/11/19 09:00 11/15/19 11:16 Vitamin C PO 1,000 mg DAILY NGUYEN Administration Aspirin 81 mg 11/10/19 09:00 11/15/19 08:43 Ecotrin PO 81 mg QAM NGUYEN Administration Azelastine HCl 0 ml 11/10/19 09:00 11/15/19 09:30 Azelastine NS 1 spr DAILY NGUYEN Administration Benzonatate 200 mg 11/14/19 21:00 11/15/19 15:53 Tessalon PO 200 mg TID NGUYEN Administration Cholecalciferol 1,000 units 11/11/19 09:00 11/15/19 08:42 Vitamin D3 PO 1,000 units DAILY NGUYEN Administration Dexamethasone 6 mg 11/10/19 08:00 11/15/19 11:15 Decadron PO 6 mg QAM-WM NGUYEN Administration Enoxaparin Sodium 40 mg 11/10/19 09:00 11/15/19 08:43 Lovenox SC 40 mg 0900,2100 NGUYEN Administration Guaifenesin 1,200 mg 11/14/19 21:00 11/15/19 08:42 Mucinex PO 1,200 mg Q12HR NGUYEN Administration Guaifenesin/Dextromethorphan 15 ml 11/12/19 23:58 11/13/19 00:03 Robitussin Dm PO 15 ml Q4H PRN Administration Cough Losartan Potassium 100 mg 11/10/19 09:00 11/15/19 08:42 Cozaar PO 100 mg DAILY NGUYEN Administration Melatonin 3 mg 11/10/19 07:50 11/10/19 20:29 Melatonin PO 3 mg HS PRN Administration Insomnia Mirabegron 50 mg 11/10/19 09:00 11/15/19 11:15 Myrbetriq Er PO 50 mg DAILY NGUYEN Administration Mometasone Furoate/Formoterol Fumar 2 puff 11/10/19 18:30 11/15/19 06:47 Dulera 100 Mcg/5 Mcg Inhaler INH 2 puff BID-RT NGUYEN Administration Nifedipine 60 mg 11/10/19 09:00 11/15/19 08:43 Procardia Xl PO 60 mg DAILY NGUYEN Administration Ondansetron HCl 4 mg 11/11/19 09:53 11/11/19 21:13 Zofran IVP 4 mg Q6H PRN Administration Nausea/Vomiting Pantoprazole Sodium 40 mg 11/10/19 09:00 11/15/19 08:43 Protonix PO 40 mg DAILY NGUYEN Administration Ropinirole HCl 0.25 mg 11/10/19 21:00 11/14/19 20:29 Requip PO 0.25 mg HS NGUYEN Administration Sodium Chloride 10 ml 11/11/19 21:00 11/15/19 08:44 Flush - Normal Saline IVF 10 ml Q12HR NGUYEN Administration Zinc Sulfate 220 mg 11/11/19 09:00 11/15/19 11:17 Zinc Sulfate PO 220 mg DAILY NGUYEN Administration - Exam General Appearance: awake alert Eye: anicteric sclera ENT: no oropharyngeal lesions, moist mucosa Neck: supple Heart: RRR Respiratory: CTAB Gastrointestinal: soft, non-tender Psychiatric: normal affect, normal behavior Hosp A/P (1) Pneumonia due to COVID-19 virus Code(s): U07.1 - COVID-19; J12.89 - OTHER VIRAL PNEUMONIA Status: Acute (2) Dyslipidemia Code(s): E78.5 - HYPERLIPIDEMIA, UNSPECIFIED Status: Chronic (3) GERD (gastroesophageal reflux disease) Code(s): K21.9 - GASTRO-ESOPHAGEAL REFLUX DISEASE WITHOUT ESOPHAGITIS Status: Chronic (4) CAD (coronary artery disease) Code(s): I25.10 - ATHSCL HEART DISEASE OF [place] CORONARY ARTERY W/O ANG PCTRS Status: Chronic (5) HTN (hypertension) Code(s): I10 - ESSENTIAL (PRIMARY) HYPERTENSION Status: Chronic (6) Chronic kidney disease, stage 3 Code(s): N18.3 - CHRONIC KIDNEY DISEASE, STAGE 3 (MODERATE) Status: Chronic - Plan out of bed/ambulate Continue dexamethasone. Follow inflammatory markers. Pt is still needing supplemental oxygen continue Vit C/D/zinc HTN controlled CKD and CAD stable Continue cough meds. Transfer to medical floor.
[2019-11-15] MEDS: Melatonin 3 MG TAB PO PRN (22:25)
[2019-11-15] MEDS: rOPINIRole HCl 0.25 MG TAB PO SCH (22:25)
[2019-11-15] MEDS: Acetaminophen 325 MG TAB PO PRN (22:27)
[2019-11-16] MEDS: Guaifenesin DM 100-10/5 ML UDCUP PO PRN (08:10)
[2019-11-16] MEDS: Mometasone 100 MCG/Formoterol 5 MCG 120 PUFF INHALER INH SCH ×2 (08:10→18:05)
[2019-11-16] MEDS: Aspirin 81 mg Enteric Coated Tablet PO SCH (08:11)
[2019-11-16] MEDS: Enoxaparin Sodium 40 MG/0.4 ML SYRINGE SC SCH ×2 (08:11→20:40)
[2019-11-16] MEDS: Dexamethasone 4 MG TAB PO SCH (08:11)
[2019-11-16] MEDS: NIFEdipine XL 60 MG TAB PO SCH (08:11)
[2019-11-16] MEDS: Losartan 25 MG TAB PO SCH (08:11)
[2019-11-16] MEDS: Cholecalciferol 1,000 UNITS (25 MCG) TAB PO SCH (08:12)
[2019-11-16] MEDS: Ascorbic Acid 500 mg Chewable Tablet PO SCH (08:12)
[2019-11-16] MEDS: guaiFENesin ER 600 MG TAB PO SCH (08:12)
[2019-11-16] MEDS: Benzonatate 100 MG CAP PO SCH (08:12)
[2019-11-16] MEDS: Azelastine 137 MCG/Spray 30 ML NS SCH (08:14)
[2019-11-16] MEDS: Zinc Sulfate 220 MG CAP PO SCH (09:18)
[2019-11-16] MEDS: Benzonatate 100 MG CAP PO PRN (16:04)
--- NOTE | 2019-11-16 16:14 | PRG ---
DATE OF SERVICE: 11/16/2019 SUBJECTIVE: Mr. Quinn with less cough, still feels weak with some malaise. No abdominal pain. Anorexia is noted. OBJECTIVE: VITAL SIGNS: His temperature has been within normal limits, pulse 76, respiratory rate ranging from 18 to 24 at times, O2 saturations ranged from 92% to 96%, and supplementation had been at 3.5, now it is at 3 L/minute. BP 110/62. GENERAL: The patient is awake, does not appear in distress. LUNGS: Symmetric air entry. HEART: S1 and S2. Regular rate. ABDOMEN: Soft. EXTREMITIES: Moves extremities equally. LABORATORY DATA: Ferritin went up to 784, now is down to 664. C-reactive protein went up to 11, is down to 4.07 at the moment. His creatinine was down to 1.17, is up to 1.38. D-dimer is less than 0.27. MEDICATIONS: The patient is currently on inhalers, Decadron, and enoxaparin b.i.d. ASSESSMENT AND DISCUSSION: Coronary artery disease; hyperlipidemia; asthma; COVID pneumonia, [id number], on Decadron, some waxing and waning of inflammatory markers, still needing moderate amounts of oxygen supplementation, and hopefully, we will see a downward trend in the ensuing days. Job ID: [id number]
--- NOTE | 2019-11-16 17:43 | PDOC.HOSPP ---
- Subjective Encounter Date: 11/16/19 Encounter Time: 11:00 Subjective: no overnight events. increasing oxygen demand over the past few days. Endorses mild dyspnea that is improving. no other complaints. - Objective Vital Signs & Weight: Vital Signs (12 hours) Temp Pulse Resp BP BP Pulse Ox 11/16/19 16:00 98.0 F 77 20 110/79 96 11/16/19 12:00 97.9 F 76 22 H 110/62 94 L 11/16/19 08:11 65 11/16/19 08:00 98.4 F 88 20 115/69 92 L Weight Admit Weight 200 lb Weight 200 lb I&O: 11/15/19 11/16/19 11/17/19 06:59 06:59 06:59 Intake Total 1030 Output Total 850 Balance 180 Result Diagrams: 11/15/19 04:49 11/15/19 04:49 Hospitalist ROS - Review of Systems Constitutional: denies: fever, chills, sweats Respiratory: reports: cough, dry, shortness of breath Cardiovascular: denies: chest pain, palpitations Gastrointestinal: denies: nausea, vomiting, abdominal pain Genitourinary: denies: dysuria, frequency, hematuria - Medication Medications: Active Medications Generic Name Dose Route Start Last Admin Trade Name Freq PRN Reason Stop Dose Admin Acetaminophen 650 mg 11/09/19 17:54 11/15/19 22:27 Tylenol PO 650 mg Q4H PRN Administration Headache/Fever/Mild Pain (1-3) Albuterol Sulfate 2 puff 11/14/19 21:29 11/15/19 15:00 Proventil Hfa INH 2 puff QIDPRN PRN Administration SOB/WHEEZE Ascorbic Acid 1,000 mg 11/11/19 09:00 11/16/19 08:12 Vitamin C PO 1,000 mg DAILY NGUYEN Administration Aspirin 81 mg 11/10/19 09:00 11/16/19 08:11 Ecotrin PO 81 mg QAM NGUYEN Administration Azelastine HCl 0 ml 11/10/19 09:00 11/16/19 08:14 Azelastine NS 1 spr DAILY NGUYEN Administration Benzonatate 200 mg 11/16/19 09:21 11/16/19 16:04 Tessalon PO 200 mg TIDPRN PRN Administration Cough Cholecalciferol 1,000 units 11/11/19 09:00 11/16/19 08:12 Vitamin D3 PO 1,000 units DAILY NGUYEN Administration Dexamethasone 6 mg 11/10/19 08:00 11/16/19 08:11 Decadron PO 6 mg QAM-WM NGUYEN Administration Enoxaparin Sodium 40 mg 11/10/19 09:00 11/16/19 08:11 Lovenox SC 40 mg 0900,2100 NGUYEN Administration Losartan Potassium 100 mg 11/10/19 09:00 11/16/19 08:11 Cozaar PO 100 mg DAILY NGUYEN Administration Melatonin 3 mg 11/10/19 07:50 11/15/19 22:25 Melatonin PO 3 mg HS PRN Administration Insomnia Mirabegron 50 mg 11/10/19 09:00 11/16/19 09:18 Myrbetriq Er PO 50 mg DAILY NGUYEN Administration Mometasone Furoate/Formoterol Fumar 2 puff 11/10/19 18:30 11/16/19 08:10 Dulera 100 Mcg/5 Mcg Inhaler INH 2 puff BID-RT NGUYEN Administration Nifedipine 60 mg 11/10/19 09:00 11/16/19 08:11 Procardia Xl PO 60 mg DAILY NGUYEN Administration Ondansetron HCl 4 mg 11/11/19 09:53 11/11/19 21:13 Zofran IVP 4 mg Q6H PRN Administration Nausea/Vomiting Pantoprazole Sodium 40 mg 11/10/19 09:00 11/16/19 08:12 Protonix PO 40 mg DAILY NGUYEN Administration Ropinirole HCl 0.25 mg 11/10/19 21:00 11/15/19 22:25 Requip PO 0.25 mg HS NGUYEN Administration Sodium Chloride 10 ml 11/11/19 21:00 11/16/19 08:15 Flush - Normal Saline IVF 10 ml Q12HR NGUYEN Administration Zinc Sulfate 220 mg 11/11/19 09:00 11/16/19 09:18 Zinc Sulfate PO 220 mg DAILY NGUYEN Administration - Exam General Appearance: NAD, awake alert Neck: no JVD Heart: RRR, no murmur, no gallops, no rubs Respiratory: CTAB, no wheezes, no rales, no ronchi Gastrointestinal: soft, non-tender, non-distended, normal bowel sounds Extremities: no edema Psychiatric: normal affect, normal behavior, A&O x 3 Hosp A/P - Plan #COVID pneumonia -increased oxygen demand over the past few days -changed antitussives to PRN; requested that patient takes them only if bothered or prevent sleep -continue decadron #CKD #CAD continue current management ELOS: 2 nights
[2019-11-16] MEDS: rOPINIRole HCl 0.25 MG TAB PO SCH (20:40)
[2019-11-16] MEDS: Melatonin 3 MG TAB PO PRN (20:41)
[2019-11-16] MEDS: guaiFENesin ER 600 MG TAB PO PRN (20:41)
[2019-11-17] MEDS: Mometasone 100 MCG/Formoterol 5 MCG 120 PUFF INHALER INH SCH ×2 (06:13→18:12)
[2019-11-17] MEDS: Aspirin 81 mg Enteric Coated Tablet PO SCH (07:54)
[2019-11-17] MEDS: Cholecalciferol 1,000 UNITS (25 MCG) TAB PO SCH (07:54)
[2019-11-17] MEDS: Benzonatate 100 MG CAP PO PRN ×2 (07:54→20:01)
[2019-11-17] MEDS: Dexamethasone 4 MG TAB PO SCH (07:54)
[2019-11-17] MEDS: NIFEdipine XL 60 MG TAB PO SCH (07:54)
[2019-11-17] MEDS: Azelastine 137 MCG/Spray 30 ML NS SCH (07:55)
[2019-11-17] MEDS: guaiFENesin ER 600 MG TAB PO PRN (07:55)
[2019-11-17] MEDS: Losartan 25 MG TAB PO SCH (07:55)
[2019-11-17] MEDS: Ascorbic Acid 500 mg Chewable Tablet PO SCH (07:55)
[2019-11-17] MEDS: Enoxaparin Sodium 40 MG/0.4 ML SYRINGE SC SCH (07:56)
[2019-11-17] MEDS: Zinc Sulfate 220 MG CAP PO SCH (08:27)
--- NOTE | 2019-11-17 15:13 | RAD ---
EXAM: Single view of the chest HISTORY: Shortness of breath COMPARISON: 11/09/2019 FINDINGS: Single view of the chest shows a normal sized cardiomediastinal silhouette. There are multi focal peripheral opacities in the lungs which have worsened compared to the prior exam. The bones are unremarkable IMPRESSION: Worsening multifocal pneumonia.
--- NOTE | 2019-11-17 16:48 | PDOC.HOSPP ---
- Subjective Encounter Date: 11/17/19 Encounter Time: 09:00 Subjective: no overnight events. this morning, breathing mildly improved but oxygen demand continues to uptrend. - Objective Vital Signs & Weight: Vital Signs (12 hours) Temp Pulse Resp BP Pulse Ox 11/17/19 16:00 88 20 93 L 11/17/19 12:00 97.6 F 70 20 126/74 98 11/17/19 08:00 97.8 F 73 25 H 138/70 93 L 11/17/19 07:54 74 11/17/19 05:43 95 Weight Admit Weight 200 lb Weight 200 lb I&O: 11/16/19 11/17/19 11/18/19 06:59 06:59 06:59 Intake Total 1350 Balance 1350 Result Diagrams: 11/15/19 04:49 11/15/19 04:49 Hospitalist ROS - Review of Systems Constitutional: denies: fever, chills Respiratory: reports: cough, dry, shortness of breath, SOB with excertion, pleuritic pain. denies: hemoptysis Cardiovascular: denies: chest pain, palpitations Gastrointestinal: denies: nausea, vomiting, diarrhea Genitourinary: denies: dysuria, frequency, incontinence - Medication Medications: Active Medications Generic Name Dose Route Start Last Admin Trade Name Freq PRN Reason Stop Dose Admin Acetaminophen 650 mg 11/09/19 17:54 11/15/19 22:27 Tylenol PO 650 mg Q4H PRN Administration Headache/Fever/Mild Pain (1-3) Albuterol Sulfate 2 puff 11/14/19 21:29 11/15/19 15:00 Proventil Hfa INH 2 puff QIDPRN PRN Administration SOB/WHEEZE Ascorbic Acid 1,000 mg 11/11/19 09:00 11/17/19 07:55 Vitamin C PO 1,000 mg DAILY NGUYEN Administration Aspirin 81 mg 11/10/19 09:00 11/17/19 07:54 Ecotrin PO 81 mg QAM NGUYEN Administration Azelastine HCl 0 ml 11/10/19 09:00 11/17/19 07:55 Azelastine NS 1 spr DAILY NGUYEN Administration Benzonatate 200 mg 11/16/19 09:21 11/17/19 07:54 Tessalon PO 200 mg TIDPRN PRN Administration Cough Cholecalciferol 1,000 units 11/11/19 09:00 11/17/19 07:54 Vitamin D3 PO 1,000 units DAILY NGUYEN Administration Dexamethasone 6 mg 11/10/19 08:00 11/17/19 07:54 Decadron PO 6 mg QAM-WM NGUYEN Administration Guaifenesin 1,200 mg 11/16/19 09:22 11/17/19 07:55 Mucinex PO 1,200 mg Q12H PRN Administration Cough Losartan Potassium 100 mg 11/10/19 09:00 11/17/19 07:55 Cozaar PO 100 mg DAILY NGUYEN Administration Melatonin 3 mg 11/10/19 07:50 11/16/19 20:41 Melatonin PO 3 mg HS PRN Administration Insomnia Mirabegron 50 mg 11/10/19 09:00 11/17/19 08:27 Myrbetriq Er PO 50 mg DAILY NGUYEN Administration Mometasone Furoate/Formoterol Fumar 2 puff 11/10/19 18:30 11/17/19 06:13 Dulera 100 Mcg/5 Mcg Inhaler INH 2 puff BID-RT NGUYEN Administration Nifedipine 60 mg 11/10/19 09:00 11/17/19 07:54 Procardia Xl PO 60 mg DAILY NGUYEN Administration Ondansetron HCl 4 mg 11/11/19 09:53 11/11/19 21:13 Zofran IVP 4 mg Q6H PRN Administration Nausea/Vomiting Pantoprazole Sodium 40 mg 11/10/19 09:00 11/17/19 07:55 Protonix PO 40 mg DAILY NGUYEN Administration Ropinirole HCl 0.25 mg 11/10/19 21:00 11/16/19 20:40 Requip PO 0.25 mg HS NGUYEN Administration Sodium Chloride 10 ml 11/11/19 21:00 11/17/19 07:56 Flush - Normal Saline IVF 10 ml Q12HR NGUYEN Administration Zinc Sulfate 220 mg 11/11/19 09:00 11/17/19 08:27 Zinc Sulfate PO 220 mg DAILY NGUYEN Administration - Exam General Appearance: NAD, awake alert Neck: no JVD Heart: RRR, no murmur, no gallops, no rubs Respiratory: CTAB, no wheezes, no rales, no ronchi Extremities: no edema Psychiatric: normal affect, normal behavior, A&O x 3 Hosp A/P - Plan #COVID pneumonia -increased oxygen demand over the past few days -CXR (11/16) worsening diffuse bilaeral opacities; likely cvoid pneumonia sequelae -continue steroids -procalcitonin -match I/O #CKD #CAD continue current management ELOS: 2 nights
[2019-11-17] MEDS: rOPINIRole HCl 0.25 MG TAB PO SCH (20:00)
[2019-11-17] MEDS: Melatonin 3 MG TAB PO PRN (20:01)
[2019-11-18] MEDS: Mometasone 100 MCG/Formoterol 5 MCG 120 PUFF INHALER INH SCH ×2 (05:48→18:13)
[2019-11-18] MEDS: Zinc Sulfate 220 MG CAP PO SCH (08:16)
[2019-11-18] MEDS: Dexamethasone 4 MG TAB PO SCH (08:16)
[2019-11-18] MEDS: Cholecalciferol 1,000 UNITS (25 MCG) TAB PO SCH (08:16)
[2019-11-18] MEDS: Ascorbic Acid 500 mg Chewable Tablet PO SCH (08:16)
[2019-11-18] MEDS: Aspirin 81 mg Enteric Coated Tablet PO SCH (08:17)
[2019-11-18] MEDS: Azelastine 137 MCG/Spray 30 ML NS SCH (08:18)
[2019-11-18] MEDS: Enoxaparin Sodium 40 MG/0.4 ML SYRINGE SC SCH (08:18)
[2019-11-18] MEDS: NIFEdipine XL 60 MG TAB PO SCH (10:50)
[2019-11-18] MEDS: Losartan 25 MG TAB PO SCH (10:50)
--- NOTE | 2019-11-18 13:47 | PQF ---
CLINICAL DOCUMENTATION CLARIFICATION FORM: Patient Name: KAMRYN HANEY Date of : 1950 Account: [id number] Discharge Date: Facility: [facility] Dear Dr. Red Date: 11/17 Please exercise your independent, professional judgment in responding to the clarification form. Clinical indicators are provided on the bottom of this form for your review. Please check appropriate box(es): [ x ] Acute Respiratory Failure: [x ] with Hypoxia [ ] with Hypercapnia [ ] Acute Respiratory Failure due to: (etiology) [ ] Acute On Chronic Respiratory Failure: [ ] with Hypoxia [ ] with Hypercapnia [ ] Respiratory Insufficiency [ ] Hypoxia [ ] Other diagnosis [ ] Unable to determine In addition, please specify: Present on Admission (POA): [ x ] Yes [ ] No [ ] Unable to determine For continuity of documentation, please document condition throughout progress notes and discharge summary. Thank You. To be completed by CDI/Coding staff for physician review: CLINICAL INDICATORS - SIGNS / SYMPTOMS / LABS / RESULTS AND LOCATION IN MR 11/11 Doherty: Subjective: Pt seen for f/u for COVID pneumonia. Needing supplemental oxygen. 11/15 Jed: VS: respiratory rate ranging from 18 to 24 at times, O2 saturations ranged from 92% to 96%, and supplementation had been at 3.5, now it is at 3 L/min Nursing Note 11/16 @ 0944: Pt's O2 sat was 87% with RR 25. RN increased pt's O2 to 3.5L. pt current O2 sat @ 93% 11/16 Shemesh: COVID pneumonia increased oxygen demand over the past few days CXR (11/16) worsening diffuse bilateral opacities, likely covid pneumonia sequelae RISKS / RESULTS AND LOCATION IN MR H&P 11/08 Doherty: PMH CAD, HTN, Asthma. 11/09 Jed: COVID pneumonia [id number] TREATMENTS / RESULTS AND LOCATION IN MR Order 11/08: Resp. O2 to keep sats 92% Order 11/08 Radiology: Chest 1 view portable stat Order 11/16 Radiology: Chest 1 view portable routine Thank you, Sabina Silva RN, BSN [email or web address] This is a permanent part of the Medical Record [facility]
--- NOTE | 2019-11-18 16:29 | PRG ---
DATE OF SERVICE: 11/18/2019 SUBJECTIVE: Sitting by the bedside. Still feeling very fatigued, gets winded right away when he is walking. No headaches. Moderate cough, dry mostly. No abdominal pain or diarrhea. Does not have much sensation of taste in the fluid. OBJECTIVE: VITAL SIGNS: Normal. Temperature normal. O2 saturations were 93 yesterday at 8 a.m. up to 95 at 3 a.m. and now is down to 93 at 8 a.m. He is at 3 L nasal cannula. LUNGS: Some inspiratory crackles in scattered areas. HEART: S1 and S2, regular rate. ABDOMEN: Soft, not distended. EXTREMITIES: Moves extremities equally. LABORATORY DATA: Sodium 136, creatinine 1.38, which is stable from admission. Ferritin is started at 393, went up, now is down to 664. C-reactive protein started at 5.61, went up to 11.5, and now is down to 4.07. ASSESSMENT AND DISCUSSION: Coronary artery disease; hyperlipidemia; asthma; COVID pneumonia, moderate, on Decadron. It looks like now we are seeing a downward trend of inflammatory markers. Job ID: [id number] [facility]
[2019-11-18] MEDS: rOPINIRole HCl 0.25 MG TAB PO SCH (19:35)
[2019-11-18] MEDS: Fluticasone Propionate Nasal Spray 16 gm Bottle NASAL SCH (19:36)
--- NOTE | 2019-11-18 22:18 | PDOC.HOSPP ---
- Subjective Encounter Date: 11/18/19 Encounter Time: 08:00 Subjective: no overnight events. this morning, breathing better but remains short of breath with minimal exertion. Endorses nasal congestion. otherwise no complaints. - Objective Vital Signs & Weight: Vital Signs (12 hours) Temp Pulse Resp BP BP BP Pulse Ox 11/18/19 20:00 97.7 F 74 20 111/63 97 11/18/19 10:50 82 152/84 H 11/18/19 10:40 82 152/84 H Weight Admit Weight 200 lb Weight 200 lb I&O: 11/17/19 11/18/19 11/19/19 06:59 06:59 06:59 Intake Total 1350 1680 740 Balance 1350 1680 740 Result Diagrams: 11/15/19 04:49 11/15/19 04:49 Hospitalist ROS - Review of Systems Constitutional: denies: fever, chills, sweats Respiratory: reports: cough, dry, SOB with excertion, pleuritic pain. denies: shortness of breath Cardiovascular: denies: chest pain, palpitations, orthopnea Gastrointestinal: denies: nausea, vomiting, abdominal pain Genitourinary: denies: dysuria, frequency, hematuria - Medication Medications: Active Medications Generic Name Dose Route Start Last Admin Trade Name Freq PRN Reason Stop Dose Admin Acetaminophen 650 mg 11/09/19 17:54 11/15/19 22:27 Tylenol PO 650 mg Q4H PRN Administration Headache/Fever/Mild Pain (1-3) Albuterol Sulfate 2 puff 11/14/19 21:29 11/15/19 15:00 Proventil Hfa INH 2 puff QIDPRN PRN Administration SOB/WHEEZE Ascorbic Acid 1,000 mg 11/11/19 09:00 11/18/19 08:16 Vitamin C PO 1,000 mg DAILY NGUYEN Administration Aspirin 81 mg 11/10/19 09:00 11/18/19 08:17 Ecotrin PO 81 mg QAM NGUYEN Administration Benzonatate 200 mg 11/16/19 09:21 11/17/19 20:01 Tessalon PO 200 mg TIDPRN PRN Administration Cough Cholecalciferol 1,000 units 11/11/19 09:00 11/18/19 08:16 Vitamin D3 PO 1,000 units DAILY NGUYEN Administration Dexamethasone 6 mg 11/10/19 08:00 11/18/19 08:16 Decadron PO 6 mg QAM-WM NGUYEN Administration Enoxaparin Sodium 40 mg 11/18/19 09:00 11/18/19 08:18 Lovenox SC 40 mg 0900 NGUYEN Administration Fluticasone Propionate 0 gm 11/18/19 21:00 11/18/19 19:36 Flonase Nasal Sasabe NASAL 2 spray BID NGUYEN Administration Guaifenesin 1,200 mg 11/16/19 09:22 11/17/19 07:55 Mucinex PO 1,200 mg Q12H PRN Administration Cough Losartan Potassium 100 mg 11/10/19 09:00 11/18/19 10:50 Cozaar PO 100 mg DAILY NGUYEN Administration Melatonin 3 mg 11/10/19 07:50 11/17/19 20:01 Melatonin PO 3 mg HS PRN Administration Insomnia Mirabegron 50 mg 11/10/19 09:00 11/18/19 08:16 Myrbetriq Er PO 50 mg DAILY NGUYEN Administration Mometasone Furoate/Formoterol Fumar 2 puff 11/10/19 18:30 11/18/19 18:13 Dulera 100 Mcg/5 Mcg Inhaler INH 2 puff BID-RT NGUYEN Administration Nifedipine 60 mg 11/10/19 09:00 11/18/19 10:50 Procardia Xl PO 60 mg DAILY NGUYEN Administration Ondansetron HCl 4 mg 11/11/19 09:53 11/11/19 21:13 Zofran IVP 4 mg Q6H PRN Administration Nausea/Vomiting Pantoprazole Sodium 40 mg 11/10/19 09:00 11/18/19 08:16 Protonix PO 40 mg DAILY NGUYEN Administration Ropinirole HCl 0.25 mg 11/10/19 21:00 11/18/19 19:35 Requip PO 0.25 mg HS NGUYEN Administration Sodium Chloride 10 ml 11/11/19 21:00 11/18/19 19:48 Flush - Normal Saline IVF Not Given Q12HR NGUYEN Zinc Sulfate 220 mg 11/11/19 09:00 11/18/19 08:16 Zinc Sulfate PO 220 mg DAILY NGUYEN Administration - Exam General Appearance: NAD, awake alert ENT: moist mucosa ENT - other findings: no facial tenderness Neck: no JVD Heart: RRR, no murmur, no gallops, no rubs Respiratory: CTAB, no wheezes, no rales, no ronchi Gastrointestinal: soft, non-tender, non-distended, normal bowel sounds Extremities: no edema Psychiatric: normal affect, normal behavior, A&O x 3 Hosp A/P - Plan #COVID pneumonia -increased oxygen demand over the past few days -CXR (11/16) worsening diffuse bilaeral opacities; likely cvoid pneumonia sequelae -continue steroids -flonase for nonallergic rhinitis -match I/O -wean off oxygen; keep >92% #CKD #CAD continue current management ELOS: 2 nights
[2019-11-19] MEDS: Mometasone 100 MCG/Formoterol 5 MCG 120 PUFF INHALER INH SCH ×2 (06:17→19:45)
[2019-11-19] MEDS: Ascorbic Acid 500 mg Chewable Tablet PO SCH (09:00)
[2019-11-19] MEDS: Aspirin 81 mg Enteric Coated Tablet PO SCH (09:00)
[2019-11-19] MEDS: Fluticasone Propionate Nasal Spray 16 gm Bottle NASAL SCH (09:00)
[2019-11-19] MEDS: Zinc Sulfate 220 MG CAP PO SCH (09:00)
[2019-11-19] MEDS: Dexamethasone 4 MG TAB PO SCH (09:00)
[2019-11-19] MEDS: Enoxaparin Sodium 40 MG/0.4 ML SYRINGE SC SCH (09:00)
[2019-11-19] MEDS: Cholecalciferol 1,000 UNITS (25 MCG) TAB PO SCH (09:00)
[2019-11-19] MEDS: NIFEdipine XL 60 MG TAB PO SCH (14:17)
[2019-11-19] MEDS: Losartan 25 MG TAB PO SCH (18:43)
[2019-11-19 20:08] VITALS: BP 134/77; TEMP 97.7
--- NOTE | 2019-11-20 08:04 | DIS ---
DATE OF ADMISSION: 11/09/2019 DATE OF DISCHARGE: 11/19/2019 HOSPITAL COURSE: Mr. Quinn is a 69-year-old male, who presented with worsening cough and dyspnea. He was diagnosed with COVID pneumonia, requiring supplemental oxygen. He was started on Decadron after consulting Infectious Disease. He initially had increased oxygen demand, but afterwards improved and on the day of discharge, did not require any oxygen even with walking short distances. Based on the clinical course here, the patient did not require further isolation. PHYSICAL EXAMINATION: VITAL SIGNS: Blood pressure 134/77, pulse 74, respiratory rate 16, oxygen saturation 94% on room air, and temperature 97.7. GENERAL: Lying comfortably in bed. Awake and alert. Moist mucosa. No facial tenderness. NECK: No JVD. HEART: Regular rate and rhythm. No murmurs, gallops, or rubs. RESPIRATORY: Clear to auscultation bilaterally. No wheezing, rales, or rhonchi. GI: Soft, nontender, nondistended. Normal bowel sounds. EXTREMITIES: No edema. PSYCHIATRIC: Proper mood and affect. Alert and oriented x3. MEDICATION LIST: New medications: No new medications with exception of Tessalon Perles t.i.d. p.r.n. cough. Continued medications: 1. Nifedipine. 2. Irbesartan. 3. Aspirin. 4. Mirabegron. 5. Breo Ellipta. 6. Ropinirole. 7. Pantoprazole. 8. Azelastine. 9. Combivent. 10. Melatonin. Job ID: [id number]
== END 2019-11-19 19:55 | disposition home or self-care (01) | DRG 177 ==
LOC: ERS 12:25 → 2SW 15:28 → T4-A 11-15 22:18
PROVIDERS: ADMIT Internal Medicine; ATTEND Internal Medicine
PROC: 8E0ZXY6 Isolation (ICD-10-PCS; principal; 2019-11-09)
DX: U07.1 COVID-19 (principal); J12.89 Other viral pneumonia; J96.01 Acute respiratory failure with hypoxia; E87.1 Hypo-osmolality and hyponatremia; I25.10 Atherosclerotic heart disease of native coronary artery without angina pectoris; J34.89 Other specified disorders of nose and nasal sinuses; K21.9 Gastro-esophageal reflux disease without esophagitis; E78.5 Hyperlipidemia, unspecified; I12.9 Hypertensive chronic kidney disease with stage 1 through stage 4 chronic kidney disease, or unspecified chronic kidney disease; J45.909 Unspecified asthma, uncomplicated; N18.3 Chronic kidney disease, stage 3 (moderate); Z88.1 Allergy status to other antibiotic agents; Z79.899 Other long term (current) drug therapy; Z79.82 Long term (current) use of aspirin; Z88.2 Allergy status to sulfonamides
CPT/HCPCS: 36415; 71045; 80048; 80053; 82550; 82728; 83690; 83880; 84484; 85025; 85379; 86140; 93005; 96361; 96365; 96366; 96372; 96375; J0456; J0696; J1100; J1650; J2405; J8540

== ENCOUNTER 2021-02-12 07:28 | Outpatient (CLI) | payer BC, MEDICARE | END 2021-02-12 07:29 | disposition home or self-care (01) | LOC: NM 07:28 | PROVIDERS: ATTEND Internal Medicine | DX: R11.0 Nausea (principal); R14.0 Abdominal distension (gaseous) | CPT/HCPCS: 78264; A9541 ==

== ENCOUNTER 2021-10-14 07:48 | Outpatient (CLI) | payer MEDICARE ==
[2021-10-14 09:11] LABS: Hemoglobin 15.8 g/dL (13.5-17.5); Mean Corpuscular HGB CONC 33.3 g/dL (32.0-36.0); Mean Corpuscular Hemoglobin 30.4 pg (27.0-33.0); Mean Corpuscular Volume 91.3 fl (81.2-95.1); Mean Platelet Volume 9.8 fl (7.4-10.4); Platelet Count 230 10x3/uL (150-450); RBC Distribution Width 13.6 % (11.5-14.5)
[2021-10-14 09:14] LABS: INR-International Normal Ratio 0.9; PTT 26.8 sec (22.0-33.0); Prothrombin Time 10.3 sec (9.5-12.1)
[2021-10-14 09:41] LABS: Anion Gap 15 mmol/L (10-20); BUN (Urea Nitrogen) 27 mg/dL (8.4-25.7); Calc. Creatinine Clearance 0 mL/min (70-130); Calcium 9.6 mg/dL (7.8-10.44); Carbon Dioxide 26 mmol/L (23-31); Chloride 104 mmol/L (98-107); Glucose 101 mg/dL (80-115); Potassium 4.4 mmol/L (3.5-5.1); Sodium 141 mmol/L (136-145)
== END 2021-10-14 07:49 | disposition home or self-care (01) ==
LOC: LABBT 07:48
PROVIDERS: ATTEND Surgery
DX: Z01.818 Encounter for other preprocedural examination (principal); M51.16 Intervertebral disc disorders with radiculopathy, lumbar region; Z20.822 Contact with and (suspected) exposure to COVID-19
CPT/HCPCS: 80048; 85027; 85610; 85730; 93005; U0003; U0005; 93010

== ENCOUNTER 2021-10-19 07:51 | Observation (INO) | payer MEDICARE ==
[2021-10-14 10:44] VITALS: BMI 27.8
[2021-10-19] MEDS ORDERED: Thrombin 5000 UNITS/5 ML VIAL ONE (09:46)
[2021-10-19] MEDS ORDERED: Sodium Chloride 0.9% 100 ML ONE (10:01)
[2021-10-19] MEDS ORDERED: CEFAZOLIN 2 GM VIAL ONE (10:01)
[2021-10-19] MEDS ORDERED: fentaNYL Citrate/PF 100 MCG/2 ML SYRINGE ONE (10:03)
[2021-10-19] MEDS ORDERED: HYDROcodone/Acetaminophen 7.5/325 mg Tablet PO PRN (10:45)
[2021-10-19] MEDS ORDERED: traMADol HCl 50 MG TAB PO PRN (10:45)
[2021-10-19] MEDS ORDERED: Morphine 2 MG/ML VIAL SLOW IVP PRN (10:45)
[2021-10-19] MEDS ORDERED: Acetaminophen 325 MG TAB PO PRN (10:45)
[2021-10-19] MEDS ORDERED: Ondansetron PF 4 MG/2 ML Vial IVP PRN (10:45)
[2021-10-19] MEDS ORDERED: Benzonatate 100 MG CAP PO PRN (10:49)
[2021-10-19] MEDS ORDERED: tiZANidine HCl 4 MG TAB PO PRN (10:49)
[2021-10-19] MEDS ORDERED: Zolpidem Tartrate 5 MG TAB PO PRN (10:49)
[2021-10-19] MEDS ORDERED: HYDROmorphone 2 MG/ML VIAL SLOW IVP PRN (11:46)
[2021-10-19] MEDS ORDERED: Promethazine HCl 25 MG/ML VIAL IVPB PRN (11:46)
[2021-10-19] MEDS ORDERED: Morphine Sulfate 2 MG/ML SYRINGE SLOW IVP PRN (11:46)
[2021-10-19] MEDS ORDERED: PACU-Morphine 4MG/ML VIAL SLOW IVP PRN (11:46)
[2021-10-19] MEDS ORDERED: Ondansetron HCl/PF 4 MG/2 ML Vial IVP PRN (11:46)
[2021-10-19] MEDS ORDERED: Promethazine HCl 25 MG/ML VIAL IM PRN (11:46)
[2021-10-19] MEDS ORDERED: Fentanyl 100 MCG/2 ML VIAL ONE ×2 (12:27→12:49)
[2021-10-19] MEDS ORDERED: Melatonin 3 MG TAB PO PRN (13:00)
[2021-10-19] MEDS: Sodium Chloride 0.9% 1,000 ML IV SCH (14:01)
[2021-10-19] MEDS: Acetaminophen/Codeine 30-300mg Tablet PO PRN ×2 (14:30→20:45)
[2021-10-19] MEDS: CEFAZOLIN 2 GM in Sodium Chloride 0.9% 100 ML IVPB SCH (17:17)
[2021-10-19] MEDS: Mometasone 100 MCG/Formoterol 5 MCG 120 PUFF INHALER INH SCH (19:44)
[2021-10-19] MEDS: Gabapentin 300 MG CAP PO SCH (20:46)
[2021-10-19] MEDS ORDERED: rOPINIRole HCl 0.25 MG TAB PO SCH (21:00)
[2021-10-20] MEDS: CEFAZOLIN 2 GM in Sodium Chloride 0.9% 100 ML IVPB SCH (02:55)
[2021-10-20] MEDS: Sodium Chloride 0.9% 1,000 ML IV SCH (03:35)
[2021-10-20] MEDS: Mometasone 100 MCG/Formoterol 5 MCG 120 PUFF INHALER INH SCH (07:01)
[2021-10-20 08:22] VITALS: BP 132/70; TEMP 97.9
[2021-10-20] MEDS: Gabapentin 300 MG CAP PO SCH (08:33)
[2021-10-20] MEDS ORDERED: Losartan 25 MG TAB PO SCH (09:00)
[2021-10-20] MEDS ORDERED: Azelastine 137 MCG/Spray 30 ML NS SCH (09:00)
[2021-10-20] MEDS ORDERED: Amlodipine 5 MG TAB PO SCH (09:00)
[2021-10-20] MEDS ORDERED: Metoprolol Tartrate 25 MG TAB PO SCH (09:00)
== END 2021-10-20 10:32 | disposition home or self-care (01) ==
LOC: SDC 07:51 → T4-A 10:49
PROVIDERS: ADMIT Surgery; ATTEND Surgery
PROC: 01NB0ZZ Release Lumbar Nerve, Open Approach (ICD-10-PCS; principal; 2021-10-19)
DX: M51.16 Intervertebral disc disorders with radiculopathy, lumbar region (principal); Z79.82 Long term (current) use of aspirin; Z79.899 Other long term (current) drug therapy; Z88.1 Allergy status to other antibiotic agents; Z88.2 Allergy status to sulfonamides; Z88.5 Allergy status to narcotic agent; Z95.5 Presence of coronary angioplasty implant and graft
CPT/HCPCS: 76000; 96374; 96376; G0378; J0690; J3010; J3370; J3490; J7050

== ENCOUNTER 2021-12-23 13:25 | Outpatient (CLI) | payer MEDICARE | END 2021-12-23 13:26 | disposition home or self-care (01) | LOC: TBSIIMAG 13:25 | PROVIDERS: ATTEND Surgery | DX: M51.16 Intervertebral disc disorders with radiculopathy, lumbar region (principal) | CPT/HCPCS: 72148 ==

== ENCOUNTER 2022-03-23 09:13 | Outpatient (CLI) | payer MEDICARE ==
[2022-03-23 10:28] LABS: Hemoglobin 15.3 g/dL (13.5-17.5); Mean Corpuscular HGB CONC 33.3 g/dL (32.0-36.0); Mean Corpuscular Hemoglobin 30.6 pg (27.0-33.0); Mean Platelet Volume 10.3 fl (7.4-10.4); Platelet Count 218 10x3/uL (150-450); RBC Distribution Width 13.2 % (11.5-14.5); White Blood Cell (WBC) Count 5.9 10x3/uL (3.5-10.5)
[2022-03-23 10:38] LABS: Anion Gap 15 mmol/L (10-20); BUN (Urea Nitrogen) 18 mg/dL (8.4-25.7); Calc. Creatinine Clearance 0 mL/min (70-130); Calcium 9.7 mg/dL (7.8-10.44); Carbon Dioxide 29 mmol/L (23-31); Chloride 104 mmol/L (98-107); Estimated GFR 58; Glucose 104 mg/dL (80-115); Potassium 4.6 mmol/L (3.5-5.1); Sodium 143 mmol/L (136-145)
== END 2022-03-23 09:14 | disposition home or self-care (01) ==
LOC: LABBT 09:13
PROVIDERS: ATTEND Surgery
DX: Z01.818 Encounter for other preprocedural examination (principal); K40.91 Unilateral inguinal hernia, without obstruction or gangrene, recurrent; K40.90 Unilateral inguinal hernia, without obstruction or gangrene, not specified as recurrent
CPT/HCPCS: 80048; 85027; 93005; 93010

== ENCOUNTER 2022-03-28 06:01 | Day surgery (SDC) | payer MEDICARE ==
[2022-03-22 13:34] VITALS: BMI 28.7
[2022-03-28] MEDS ORDERED: Bupivacaine/Epinephrine 0.25% 30 ML VIAL ONE (06:43)
[2022-03-28] MEDS ORDERED: fentaNYL PF 100 MCG/2 ML SYRINGE ONE (06:45)
[2022-03-28] MEDS ORDERED: Sodium Chloride 0.9% 100 ML ONE (07:30)
[2022-03-28] MEDS ORDERED: CEFAZOLIN 2 GM VIAL ONE (07:30)
[2022-03-28] MEDS ORDERED: NEOSTIGMINE 3 MG/3 ML SYR 3 MG/3 ML SYRINGE ONE (07:48)
[2022-03-28] MEDS ORDERED: Ondansetron PF 4 MG/2 ML Vial ONE (07:48)
[2022-03-28] MEDS ORDERED: Succinylcholine 200 MG/10 ml SYRINGE FS ONE (07:48)
[2022-03-28] MEDS ORDERED: Glycopyrrolate 0.2 MG/ML 5 ML SYRINGE ONE (07:48)
[2022-03-28] MEDS ORDERED: Rocuronium Bromide 10 MG/ML (10ML VIAL) ONE (07:48)
[2022-03-28] MEDS ORDERED: PROPOFOL 200 MG/20 ML VIAL ONE (07:48)
[2022-03-28] MEDS ORDERED: FENTANYL 50 MCG/ML 1 ML VIAL ONE ×2 (09:57→10:09)
[2022-03-28] MEDS ORDERED: Morphine 4 MG/ML VIAL ONE (10:42)
== END 2022-03-28 11:35 | disposition home or self-care (01) ==
LOC: SDC 06:01
PROVIDERS: ATTEND Surgery
PROC: 0YUA4JZ Supplement Bilateral Inguinal Region with Synthetic Substitute, Percutaneous Endoscopic Approach (ICD-10-PCS; principal; 2022-03-28)
PROC: 8E0W4CZ Robotic Assisted Procedure of Trunk Region, Percutaneous Endoscopic Approach (ICD-10-PCS; 2022-03-28)
DX: K40.91 Unilateral inguinal hernia, without obstruction or gangrene, recurrent (principal); K40.90 Unilateral inguinal hernia, without obstruction or gangrene, not specified as recurrent; K21.9 Gastro-esophageal reflux disease without esophagitis; I25.10 Atherosclerotic heart disease of native coronary artery without angina pectoris; E78.5 Hyperlipidemia, unspecified; I10 Essential (primary) hypertension; Z79.620 Long term (current) use of immunosuppressive biologic; Z79.82 Long term (current) use of aspirin; Z79.899 Other long term (current) drug therapy; Z88.1 Allergy status to other antibiotic agents; Z88.2 Allergy status to sulfonamides; Z88.5 Allergy status to narcotic agent; Z95.5 Presence of coronary angioplasty implant and graft
CPT/HCPCS: 49650; 49651; J3010; C1713; J2270; J2405; J2704; J3490

== ENCOUNTER 2022-08-24 09:33 | Outpatient (CLI) | payer MEDICARE | END 2022-08-24 09:34 | disposition home or self-care (01) | LOC: SCSMRI 09:33 | PROVIDERS: ATTEND Student in an Organized Health Care Education/Training Program | DX: K86.89 Other specified diseases of pancreas (principal) | CPT/HCPCS: 74183; 82565 ==